=== PATIENT | female | born 1970 | race Caucasian/White ===

== ENCOUNTER 2020-12-17 10:06 | Day surgery (SDC) | payer MEDICAID ==
[2020-12-14 11:27] LABS: MEAN PLATELET VOLUME 7.3 FL (7.4-10.4); PRE OP PLATELET COUNT 291 X10'3 (140-440)
[2020-12-14 11:29] LABS: BASOPHILS % (AUTO) 0.7 % (0-1); EOSINOPHILS # (AUTO) 0.3 X10'3 (0-0.9); EOSINOPHILS % (AUTO) 4.5 % (0-6); LYMPHOCYTES # (AUTO) 1.7 X10'3 (1.1-4.8); LYMPHOCYTES % (AUTO) 28.3 % (21-51); MEAN CORPUSCULAR HGB CONC 31.6 g/dL (33.0-36.5); MEAN CORPUSCULAR VOLUME 79.1 FL (78-98); MONOCYTES # (AUTO) 0.3 X10'3 (0-0.9); MONOCYTES % (AUTO) 5.3 % (2-12); NEUTROPHILS # (AUTO) 3.7 X10'3 (1.8-7.7); NEUTROPHILS % (AUTO) 61.2 % (42-75); PRE OP HEMATOCRIT 34.8 % (35.0-45.0); RED CELL DISTRIBUTION WIDTH 19.1 % (11.5-14.5)
[2020-12-14 11:42] LABS: ALBUMIN 3.3 G/DL (3.4-5.0); ALBUMIN/GLOBULIN RATIO 0.8 (1.1-1.5); ALKALINE PHOSPHATASE 162 IU/L (46-116); BLOOD UREA NITROGEN 7 MG/DL (7-18); BUN/CREATININE RATIO 8.4 (6.6-38.0); CALCIUM 8.7 MG/DL (8.5-10.1); CHLORIDE 102 MMOL/L (99-107); CREATININE 0.83 MG/DL (0.40-0.90); PRE OP ALT 22 U/L (30-65); PRE OP ANION GAP 6 (8-16); PRE OP AST 15 U/L (10-37); PRE OP BILIRUB, TOTAL 0.2 MG/DL (0.0-1.0); PRE OP GLUCOSE 160 MG/DL (70-104); PRE OP SODIUM 138 MMOL/L (135-145); TOTAL CARBON DIOXIDE 29.6 MMOL/L (24-32); TOTAL PROTEIN 7.7 G/DL (6.4-8.2); eGFR 72 ML/MIN
[2020-12-14 13:17] LABS: LARGE PLATELETS FEW; PLATELET ESTIMATE NORMAL
[2020-12-14 13:18] LABS: ANISOCYTOSIS 2+; HYPOCHROMASIA 1+; MICROCYTOSIS 1+; STOMATOCYTES FEW
[~2020-12-17] VITALS: Ht 160 cm; Wt 85.3 kg
[2020-12-17] VITALS (9 sets, daily range): BP systolic 152–202; BP diastolic 79–100
[~2020-12-17 10:06] MED LIST: BUPR2TAB11 SL; CEPH-585 PO; GABA600T PO; LANTUS SQ; LOP25T PO; METF-900 PO; QUET-1 PO; QUET50TA PO; ceFOXitin 2GM-NS 100mL ADDvant 100 ML IV ONE; famotidine 20mg tablet PO ONE; ringers solution, lacted 1,000 ML IV SCH
[2020-12-17] MEDS ORDERED: sevoflurane 250ml liquid IH ONE (13:54)
[2020-12-17] MEDS ORDERED: fentaNYL/PF 50MCG/1 ML 2ML syringe ONE (14:03)
[2020-12-17] MEDS ORDERED: midazolam 1 mg/ML 2ml injection ONE (14:03)
[2020-12-17] MEDS ORDERED: propofol inj 20 ML IV ONE ×2 (14:28)
[2020-12-17] MEDS ORDERED: LIDOcaine 2% (20mg/ml) 5ml vial ONE (14:28)
[2020-12-17] MEDS ORDERED: ondansetron/PF 4mg/2ml inj ONE (14:28)
[2020-12-17] MEDS ORDERED: dexamethasone sod phosphate 4mg/ml inj. ONE (14:28)
[2020-12-17] MEDS ORDERED: labetalol 20mg/4ml (5mg/ml) syringe IV PRN (14:35)
[2020-12-17] MEDS ORDERED: proCHLORperazine 10 MG/2 ml inj IV PRN (14:35)
[2020-12-17] MEDS ORDERED: morphine 4 MG/ML inj SYRINge IV PRN (14:35)
[2020-12-17] MEDS ORDERED: ringers solution, lacted 1,000 ML IV SCH (14:35)
[2020-12-17] MEDS ORDERED: acetaminophen 1,000mg/100ml IV 100 ML IV PRN (14:35)
[2020-12-17] MEDS ORDERED: hydrALAZINE 20mg/ml inj. IV PRN (14:35)
[2020-12-17] MEDS ORDERED: morphine 2 MG/ML inj. syringe IV PRN (14:35)
[2020-12-17] MEDS ORDERED: meperidine/PF 25mg/ml syringe IV PRN ×3 (14:35)
[2020-12-17] MEDS ORDERED: ondansetron/PF 4mg/2ml inj IV PRN (14:35)
[2020-12-17] MEDS ORDERED: labetalol 20mg/4ml (5mg/ml) syringe IV ONE (14:53)
[2020-12-17] MEDS ORDERED: LIDOcaine 1% W/epiNEPHrine 1:100,000 20ml vial ONE (15:06)
[2020-12-17] MEDS ORDERED: clindamycin phosphate 40gm vag cream ONE (15:08)
[2020-12-17] MEDS ORDERED: ceFAZolin 1000mg inj ONE (15:08)
[2020-12-17] MEDS ORDERED: oxyCODONE/APAP 5-325mg tablet PO ONE ×2 (15:30)
--- NOTE | 2020-12-17 15:35 | NUR ---
Received from OR via [facility] , accompanied by Anesthesiologist JOSE and report given by Anesthesiolgist. PATIENT VERBALLY AGRESSIVE WITHIN MINUTES OF GETTING TO RR. DEMANDING TO GO FOR A WALK AND TO USE THE BATHROOM . BURNS CATHETER JUST TAKEN OUT IN OR AND THAT BECAUSE OF ANESTHESIA JUST ENDING I DID NOT DEEM IT SAFE TO AMBULATE AT THIS TIME. PATIENT GIVEN OPTION TO USE A BSC AND PATIENT REFUSED ADAMANTLY. 20G PIV IN LEFT UE RUNNING LR AT 100. DENIES PAIN AT THIS TIME. 10L MASKO N WITH 100% SATURATIONS AND BP OF 202/100 WILL CONTINUE TO ASSESS AND TREAT BP AND OFFER BSC PATIENT BECOMES MORE AWARE OF SITUATION. MD CAMARGO AWARE OF THIS . Addendum: 12/17/20 at 1551 by Rafael Barbosa RN RN Amended: Links added.
--- NOTE | 2020-12-17 16:55 | NUR ---
CONFERRED WITH MD JOSE COONEY BP AND USE OF OWN PAIN MEDS AT HOME THAT WILL BRING BP DOWN. MD CONCURS WITH THIS WELL TAKING HER BP MEDS AND HYPERGLYCEMIA MEDICATIONS. AMBULATING, VOIDING, DRINKING WITHOUT TROUBLE. ALL DC INSTRUCTIONS COVERED WITH PATIENT AND ALL QUESTIONS ANSWERED TO SATISFACTION. OUT VIA WHEELCHAIR TO PERSONAL VEHICLE WHERE DAUGHTER PRINCE DROVE PATIENT HOME. PATIENT AGREES TO TAKE HER BP AND DIABETIC MEDICATIONS AT HOME. Addendum: 12/17/20 at 1712 by Rafael Barbosa RN, RN Amended: Links added.
== END 2020-12-17 16:55 | disposition home or self-care (01) ==
LOC: PAS 10:06
PROVIDERS: ATTEND Obstetrics & Gynecology
DX: N39.3 Stress incontinence (female) (male) (principal); N85.8 Other specified noninflammatory disorders of uterus; N92.0 Excessive and frequent menstruation with regular cycle; Z20.822 Contact with and (suspected) exposure to COVID-19; K21.9 Gastro-esophageal reflux disease without esophagitis; F41.9 Anxiety disorder, unspecified; E11.9 Type 2 diabetes mellitus without complications; E78.5 Hyperlipidemia, unspecified; I10 Essential (primary) hypertension; F31.9 Bipolar disorder, unspecified; D64.9 Anemia, unspecified; M19.90 Unspecified osteoarthritis, unspecified site; I25.2 Old myocardial infarction; Z87.440 Personal history of urinary (tract) infections; Z79.899 Other long term (current) drug therapy; Z88.2 Allergy status to sulfonamides; Z79.4 Long term (current) use of insulin; F17.210 Nicotine dependence, cigarettes, uncomplicated; Z90.49 Acquired absence of other specified parts of digestive tract; Z98.51 Tubal ligation status; Z98.890 Other specified postprocedural states; Z81.8 Family history of other mental and behavioral disorders; Z82.49 Family history of ischemic heart disease and other diseases of the circulatory system
CPT/HCPCS: 36415; 57288; 58563; 80053; 82948; 85025; 86885; 86900; 86901; 87635; 93005; A4649; C1758; C1771; J0131; J0360; J0690; J0694; J1100; J2001; J2175; J2250; J2405; J2704; J3010; J7030; J7120; 85008; A4355; A4618; A7000; J3490

== ENCOUNTER 2023-02-08 11:42 | Inpatient (IN) | payer MEDICAID ==
[~2023-02-08] VITALS: Ht 160 cm; Wt 70.0 kg
[~2023-02-08 11:42] MED LIST changes: -ceFOXitin 2GM-NS 100mL ADDvant 100 ML IV ONE; -famotidine 20mg tablet PO ONE; -ringers solution, lacted 1,000 ML IV SCH
[2023-02-08] MEDS ORDERED: normal saline 1000ML IV soln IV ONE (12:20)
[2023-02-08] MEDS ORDERED: levoFLOXACIN-Levaquin 750MG/D5 150 ML IV ONE (12:20)
[2023-02-08 12:42] LABS: CLARITY,URINE CLOUDY (Clear); COLOR,URINE YELLOW (Yellow); GLUCOSE, URINE NEGATIVE (Neg); KETONES,URINE TRACE mg/dl (Neg); LEUKOCYTE ESTERASE ,URINE LARGE (Neg); NITRITES, URINE POSITIVE (Neg); OCCULT BLOOD,URINE LARGE (Neg); PH,URINE 5.5 (4.8-8.0); PROTEIN,URINE >=300 mg/dl (Neg); UROBILINOGEN,URINE 0.2 E.U/dL (0.2-1.0)
[2023-02-08 12:43] LABS: BASOPHILS % (AUTO) 0.1 % (0-1); EOSINOPHILS # (AUTO) 0.1 X10'3 (0-0.9); EOSINOPHILS % (AUTO) 0.5 % (0-6); HEMATOCRIT 30.6 % (35.0-45.0); HEMOGLOBIN 10.3 g/dl (12.0-16.0); LYMPHOCYTES % (AUTO) 4.9 % (21-51); MEAN CORPUSCULAR HEMOGLOBIN 34.4 PG (27.0-31.0); MEAN CORPUSCULAR HGB CONC 33.5 g/dL (33.0-36.5); MEAN CORPUSCULAR VOLUME 102.6 FL (78-98); MEAN PLATELET VOLUME 7.5 FL (7.4-10.4); MONOCYTES # (AUTO) 1.2 X10'3 (0-0.9); MONOCYTES % (AUTO) 5.8 % (2-12); NEUTROPHILS # (AUTO) 18.2 X10'3 (1.8-7.7); NEUTROPHILS % (AUTO) 88.7 % (42-75); PLATELET COUNT 265 X10'3 (140-440); RED BLOOD COUNT 2.98 X10'6 (4.20-5.60); RED CELL DISTRIBUTION WIDTH 14.8 % (11.5-14.5); WHITE BLOOD COUNT 20.5 X10'3 (4.5-11.0)
[2023-02-08 12:45] LABS: UA COLLECTION TYPE STRAIGHT CATH
[2023-02-08 12:49] LABS: WBC,URINE TNTC /HPF (0-4)
[2023-02-08 12:50] LABS: BACTERIA,URINE 4+ /HPF (Neg); MUCUS STRANDS NONE SEEN /LPF (Neg); SQUAMOUS EPITHELIAL CELL,UR FEW /LPF (FEW)
[2023-02-08 12:56] LABS: ALANINE AMINOTRANSFERASE 23 U/L (12-78); ALBUMIN 2.3 G/DL (3.4-5.0); ALBUMIN/GLOBULIN RATIO 0.5 (1.1-1.5); ALKALINE PHOSPHATASE 219 IU/L (46-116); ANION GAP 15 (8-16); ASPARTATE AMINO TRANSFERASE 32 U/L (10-37); BILIRUBIN,TOTAL 0.6 MG/DL (0.1-1.0); BLOOD UREA NITROGEN 54 MG/DL (7-18); BUN/CREATININE RATIO 17.3 (10.0-20.0); CALCIUM 8.8 MG/DL (8.5-10.1); CHLORIDE 102 MMOL/L (99-107); CREATININE 3.13 MG/DL (0.40-0.90); GLUCOSE 118 MG/DL (70-104); POTASSIUM 3.3 MMOL/L (3.5-5.1); SODIUM 136 MMOL/L (135-145); TOTAL CARBON DIOXIDE 18.8 MMOL/L (24-32); TOTAL PROTEIN 6.9 G/DL (6.4-8.2); eGFR 15 ML/MIN
[2023-02-08] MEDS ORDERED: ondansetron/PF 4mg/2ml inj IV ONE (13:00)
--- NOTE | 2023-02-08 13:09 | NUR ---
To CT at this time via [facility].
[2023-02-08] MEDS ORDERED: normal saline 1000ML IV soln IVB ONE (13:50)
[2023-02-08] MEDS ORDERED: dextrose 50%-water 50ml dispensing syringe IV PRN ×2 (14:30)
[2023-02-08] MEDS ORDERED: glucagon, human recombinant 1mg kit SUBCUT PRN (14:30)
[2023-02-08] MEDS ORDERED: potassium Cl 20 mEq SR tablet PO PRN (14:30)
[2023-02-08] MEDS ORDERED: MESSAGE TO PHARMACY PO ONE (14:30)
[2023-02-08] MEDS ORDERED: magnesium Cl slow-release 64mg tablet PO PRN (14:30)
[2023-02-08] MEDS: normal saline 1000ml 1,000 ML IV SCH (14:30)
[2023-02-08] MEDS ORDERED: ondansetron/PF 4mg/2ml inj IV PRN (14:30)
[2023-02-08] MEDS ORDERED: acetaminophen 325mg tablet PO PRN (14:30)
[2023-02-08] MEDS ORDERED: DEXTROSE 15 GM of carb/4 tabs (each vial/BOTTLE has 4 tablets) PO PRN ×2 (14:30)
[2023-02-08] MEDS ORDERED: magnesium 4gm in 100ml NS 100 ML IV PRN (14:30)
[2023-02-08] MEDS ORDERED: insulin Lispro (HumaLOG) vial - multi-dose SQ SCH (14:30)
[2023-02-08] MEDS ORDERED: potassium Cl 40MEQ/1/2NS 520ml 520 ML IV PRN (14:30)
[2023-02-08] MEDS ORDERED: HALO50CR2 TOP (15:09)
[2023-02-08] MEDS ORDERED: LISI10TA27 PO (15:10)
[2023-02-08] MEDS ORDERED: INSU100V9 SQ (15:11)
[2023-02-08] MEDS ORDERED: ATOR20TA66 PO (15:12)
[2023-02-08] MEDS ORDERED: FLUT16SP26 (15:12)
[2023-02-08] MEDS ORDERED: CHOL10006 PO (15:15)
[2023-02-08] MEDS ORDERED: DIPH25TA62 PO (15:16)
[2023-02-08 16:06] LABS: HEMOGLOBIN A1C 6.1 % (4.5-6.2)
--- NOTE | 2023-02-08 18:58 | NUR ---
Received report from Manjit and had the opportunity to ask questions and assume patient care.
[2023-02-08] MEDS: quetiapine 100mg tablet PO SCH (20:12)
[2023-02-08] MEDS: heparin, porcine 5000 units/ml vial SQ SCH (20:12)
[2023-02-08] MEDS: atorvastatin 20mg tablet PO SCH (20:13)
[2023-02-08] MEDS: metoprolol tartrate 25mg tablet PO SCH (20:13)
[2023-02-08] MEDS: potassium Cl 20 mEq SR tablet PO PRN (20:17)
[2023-02-08 20:32] VITALS: BP 121/61
--- NOTE | 2023-02-08 21:40 | NUR ---
Student documentation: I have reviewed interventions, admission assessments performed and documented by Marcia Pinto [facility] and interventions and assessment performed and documented by Roopa Calzada [facility].
[2023-02-08] MEDS: insulin glargine (Lantus) pen - multi-dose SQ SCH (22:11)
[2023-02-08 22:33] VITALS: BP 126/74
[2023-02-09] VITALS (8 sets, daily range): BP systolic 80–126; BP diastolic 40–74
[2023-02-09] MEDS: normal saline 1000ml 1,000 ML IV SCH ×3 (01:04→18:00)
[2023-02-09] MEDS: potassium Cl 20 mEq SR tablet PO PRN ×2 (01:29→05:11)
[2023-02-09] MEDS: acetaminophen 325mg tablet PO PRN (05:12)
[2023-02-09 06:05] LABS: BASOPHILS % (AUTO) 0 % (0-1); EOSINOPHILS % (AUTO) 0.2 % (0-6); HEMATOCRIT 29.1 % (35.0-45.0); HEMOGLOBIN 9.8 g/dl (12.0-16.0); LYMPHOCYTES # (AUTO) 0.5 X10'3 (1.1-4.8); LYMPHOCYTES % (AUTO) 3.7 % (21-51); MEAN CORPUSCULAR HEMOGLOBIN 34.5 PG (27.0-31.0); MEAN CORPUSCULAR HGB CONC 33.7 g/dL (33.0-36.5); MEAN CORPUSCULAR VOLUME 102.5 FL (78-98); MEAN PLATELET VOLUME 7.7 FL (7.4-10.4); MONOCYTES # (AUTO) 0.7 X10'3 (0-0.9); NEUTROPHILS # (AUTO) 13.2 X10'3 (1.8-7.7); NEUTROPHILS % (AUTO) 91.1 % (42-75); PLATELET COUNT 275 X10'3 (140-440); RED BLOOD COUNT 2.84 X10'6 (4.20-5.60); RED CELL DISTRIBUTION WIDTH 14.8 % (11.5-14.5); WHITE BLOOD COUNT 14.5 X10'3 (4.5-11.0)
[2023-02-09 06:24] LABS: ALANINE AMINOTRANSFERASE 18 U/L (12-78); ALBUMIN 1.8 G/DL (3.4-5.0); ALBUMIN/GLOBULIN RATIO 0.5 (1.1-1.5); ALKALINE PHOSPHATASE 273 IU/L (46-116); ANION GAP 13 (8-16); ASPARTATE AMINO TRANSFERASE 30 U/L (10-37); BILIRUBIN,TOTAL 0.5 MG/DL (0.1-1.0); BLOOD UREA NITROGEN 35 MG/DL (7-18); BUN/CREATININE RATIO 20.7 (10.0-20.0); CALCIUM 7.4 MG/DL (8.5-10.1); CHLORIDE 114 MMOL/L (99-107); CREATININE 1.69 MG/DL (0.40-0.90); GLUCOSE 98 MG/DL (70-104); POTASSIUM 3.4 MMOL/L (3.5-5.1); SODIUM 144 MMOL/L (135-145); TOTAL CARBON DIOXIDE 16.6 MMOL/L (24-32); TOTAL PROTEIN 5.7 G/DL (6.4-8.2); eGFR 32 ML/MIN
--- NOTE | 2023-02-09 06:42 | NUR ---
Problems reprioritized. Patient report given, questions answered & plan of care reviewed with DURAN Perez.
--- NOTE | 2023-02-09 06:55 | NUR ---
Patient in room ORTHO 4022. I have received report from Sherin and had the opportunity to ask questions and assume patient care.
[2023-02-09] MEDS: metoprolol tartrate 25mg tablet PO SCH ×2 (07:43→21:00)
[2023-02-09] MEDS: CefTRIAXone 2gm/D5W 50ml BAG 50 ML IV SCH (07:44)
[2023-02-09] MEDS: heparin, porcine 5000 units/ml vial SQ SCH ×2 (07:45→20:59)
[2023-02-09] MEDS: quetiapine 100mg tablet PO SCH ×2 (07:46→21:00)
--- NOTE | 2023-02-09 11:35 | NUR ---
PAGER ID: [phone] MESSAGE: Nichelle Wilson in [id number] - SBP has been below 90 since 0500. Current BP is 80/40. Pt is asymptomatic and has not received any medications. Receiving NS@125 -Ana [phone]
--- NOTE | 2023-02-09 11:45 | NUR ---
SW Dr. Reddy on phone and said she would "be up shortly to see pt."
--- NOTE | 2023-02-09 15:27 | NUR ---
Student documentation: I have reviewed and agree with all interventions, assessments performed and documented by Michelle KAPLAN.
--- NOTE | 2023-02-09 18:22 | NUR ---
Patient in room ORTHO 4022. I have received report from DURAN Perez and had the opportunity to ask questions and assume patient care.
[2023-02-09] MEDS: atorvastatin 20mg tablet PO SCH (20:59)
[2023-02-09] MEDS: insulin glargine (Lantus) pen - multi-dose SQ SCH (21:00)
[2023-02-10] MEDS: normal saline 1000ml 1,000 ML IV SCH ×4 (02:25→18:55)
[2023-02-10 06:00] VITALS: BP 118/63
--- NOTE | 2023-02-10 06:35 | NUR ---
Patient in room ORTHO 4022. I have received report from Raisa and had the opportunity to ask questions and assume patient care.
--- NOTE | 2023-02-10 06:37 | NUR ---
Problems reprioritized. Patient report given, questions answered & plan of care reviewed with DURAN Perez.
[2023-02-10 07:41] LABS: BASOPHILS % (AUTO) 0.1 % (0-1); EOSINOPHILS # (AUTO) 0.1 X10'3 (0-0.9); EOSINOPHILS % (AUTO) 0.8 % (0-6); HEMATOCRIT 28.5 % (35.0-45.0); HEMOGLOBIN 9.6 g/dl (12.0-16.0); LYMPHOCYTES # (AUTO) 1.3 X10'3 (1.1-4.8); LYMPHOCYTES % (AUTO) 11.4 % (21-51); MEAN CORPUSCULAR HEMOGLOBIN 34.9 PG (27.0-31.0); MEAN CORPUSCULAR HGB CONC 33.8 g/dL (33.0-36.5); MEAN CORPUSCULAR VOLUME 103.1 FL (78-98); MONOCYTES # (AUTO) 0.6 X10'3 (0-0.9); MONOCYTES % (AUTO) 5.4 % (2-12); NEUTROPHILS # (AUTO) 9.7 X10'3 (1.8-7.7); NEUTROPHILS % (AUTO) 82.3 % (42-75); PLATELET COUNT 312 X10'3 (140-440); RED BLOOD COUNT 2.76 X10'6 (4.20-5.60); RED CELL DISTRIBUTION WIDTH 15.3 % (11.5-14.5); WHITE BLOOD COUNT 11.8 X10'3 (4.5-11.0)
[2023-02-10] MEDS: quetiapine 100mg tablet PO SCH ×2 (07:47→21:00)
[2023-02-10] MEDS: CefTRIAXone 2gm/D5W 50ml BAG 50 ML IV SCH (07:47)
[2023-02-10] MEDS: metoprolol tartrate 25mg tablet PO SCH ×2 (07:47→21:03)
[2023-02-10] MEDS: heparin, porcine 5000 units/ml vial SQ SCH ×2 (07:49→21:01)
[2023-02-10 08:04] LABS: ALANINE AMINOTRANSFERASE 17 U/L (12-78); ALBUMIN 1.8 G/DL (3.4-5.0); ALBUMIN/GLOBULIN RATIO 0.4 (1.1-1.5); ALKALINE PHOSPHATASE 259 IU/L (46-116); ANION GAP 13 (8-16); ASPARTATE AMINO TRANSFERASE 20 U/L (10-37); BILIRUBIN,TOTAL 0.4 MG/DL (0.1-1.0); BLOOD UREA NITROGEN 23 MG/DL (7-18); BUN/CREATININE RATIO 20.2 (10.0-20.0); CALCIUM 7.9 MG/DL (8.5-10.1); CHLORIDE 114 MMOL/L (99-107); CREATININE 1.14 MG/DL (0.40-0.90); GLUCOSE 92 MG/DL (70-104); POTASSIUM 3.3 MMOL/L (3.5-5.1); SODIUM 145 MMOL/L (135-145); TOTAL CARBON DIOXIDE 18.2 MMOL/L (24-32); TOTAL PROTEIN 6.1 G/DL (6.4-8.2); eGFR 50 ML/MIN
[2023-02-10] MEDS: potassium Cl 20 mEq SR tablet PO PRN ×3 (09:21→17:47)
[2023-02-10 10:15] VITALS: BP 112/60
--- NOTE | 2023-02-10 14:32 | NUR ---
Patient asked to go outside to smoke a cigarette and was notified that we do not allow our patients to go outside to smoke or to leave our floor. I offered to contact the doctor for a nicotine patch and she declined. Patient was very displeased and saluted me with her middle finger.
[2023-02-10 18:00] VITALS: BP 162/87
--- NOTE | 2023-02-10 18:22 | NUR ---
Problems reprioritized. Patient report given, questions answered & plan of care reviewed with Shalonda.
--- NOTE | 2023-02-10 18:29 | NUR ---
Patient in room ORTHO 4022. I have received report from Ana Ceron RN and had the opportunity to ask questions and assume patient care.
[2023-02-10] MEDS: insulin glargine (Lantus) pen - multi-dose SQ SCH (21:00)
[2023-02-10] MEDS: atorvastatin 20mg tablet PO SCH (21:00)
[2023-02-10 22:00] VITALS: BP 142/76
[2023-02-11 02:00] VITALS: BP 164/78
[2023-02-11] MEDS: normal saline 1000ml 1,000 ML IV SCH (02:41)
--- NOTE | 2023-02-11 02:45 | NUR ---
Pt has a temp of 100.4. IS is at bedside. Pt was educated in its use as well as coughing and deep breathing every hour
--- NOTE | 2023-02-11 05:51 | NUR ---
Problems reprioritized. Patient report given, questions answered & plan of care reviewed with Miguel GARZON.
--- NOTE | 2023-02-11 05:52 | NUR ---
Pts temp is now 99.6 oral. RN will continue to encourage po intake as well as IS and coughing and deep breathing
[2023-02-11 06:00] VITALS: BP 162/74
[2023-02-11 06:25] LABS: BASOPHILS % (AUTO) 0.3 % (0-1); EOSINOPHILS # (AUTO) 0.1 X10'3 (0-0.9); EOSINOPHILS % (AUTO) 0.9 % (0-6); HEMATOCRIT 29.5 % (35.0-45.0); HEMOGLOBIN 9.9 g/dl (12.0-16.0); LYMPHOCYTES # (AUTO) 1.2 X10'3 (1.1-4.8); LYMPHOCYTES % (AUTO) 11.9 % (21-51); MEAN CORPUSCULAR HEMOGLOBIN 34.2 PG (27.0-31.0); MEAN CORPUSCULAR HGB CONC 33.6 g/dL (33.0-36.5); MEAN CORPUSCULAR VOLUME 101.7 FL (78-98); MONOCYTES # (AUTO) 0.8 X10'3 (0-0.9); MONOCYTES % (AUTO) 7.5 % (2-12); NEUTROPHILS # (AUTO) 8.4 X10'3 (1.8-7.7); NEUTROPHILS % (AUTO) 79.4 % (42-75); PLATELET COUNT 360 X10'3 (140-440); RED CELL DISTRIBUTION WIDTH 15.8 % (11.5-14.5); WHITE BLOOD COUNT 10.5 X10'3 (4.5-11.0)
[2023-02-11 06:31] LABS: ALANINE AMINOTRANSFERASE 17 U/L (12-78); ALBUMIN 1.9 G/DL (3.4-5.0); ALBUMIN/GLOBULIN RATIO 0.4 (1.1-1.5); ALKALINE PHOSPHATASE 331 IU/L (46-116); ANION GAP 15 (8-16); ASPARTATE AMINO TRANSFERASE 18 U/L (10-37); BILIRUBIN,TOTAL 0.6 MG/DL (0.1-1.0); BLOOD UREA NITROGEN 16 MG/DL (7-18); BUN/CREATININE RATIO 16.8 (10.0-20.0); CALCIUM 8.8 MG/DL (8.5-10.1); CHLORIDE 113 MMOL/L (99-107); CREATININE 0.95 MG/DL (0.40-0.90); GLUCOSE 80 MG/DL (70-104); SODIUM 145 MMOL/L (135-145); TOTAL CARBON DIOXIDE 17.3 MMOL/L (24-32); TOTAL PROTEIN 6.4 G/DL (6.4-8.2); eGFR 61 ML/MIN
[2023-02-11 07:00] LABS: ANISOCYTOSIS 1+; PLATELET ESTIMATE NORMAL; TOTAL CELLS COUNTED 100
[2023-02-11] MEDS: acetaminophen 325mg tablet PO PRN (07:21)
[2023-02-11] MEDS ORDERED: GABA600T PO (08:24)
[2023-02-11] MEDS ORDERED: CIPR-259 PO (08:26)
[2023-02-11] MEDS: CefTRIAXone 2gm/D5W 50ml BAG 50 ML IV SCH (09:44)
[2023-02-11] MEDS: quetiapine 100mg tablet PO SCH (09:45)
[2023-02-11] MEDS: heparin, porcine 5000 units/ml vial SQ SCH (09:46)
[2023-02-11 09:47] VITALS: BP_SYST 179
[2023-02-11] MEDS: metoprolol tartrate 25mg tablet PO SCH (09:47)
== END 2023-02-11 14:30 | disposition home or self-care (01) | DRG 720 ==
LOC: ER 11:43 → ED HOLD 14:31 → ORTHO 4S 19:21
PROVIDERS: ADMIT Internal Medicine; ATTEND Internal Medicine
DX: A41.9 Sepsis, unspecified organism (principal); N17.0 Acute kidney failure with tubular necrosis; R65.21 Severe sepsis with septic shock; G92.9 Unspecified toxic encephalopathy; E11.9 Type 2 diabetes mellitus without complications; F11.20 Opioid dependence, uncomplicated; N10 Acute pyelonephritis; E87.6 Hypokalemia; F17.210 Nicotine dependence, cigarettes, uncomplicated; F31.9 Bipolar disorder, unspecified; G89.4 Chronic pain syndrome; I10 Essential (primary) hypertension; Z88.2 Allergy status to sulfonamides; Z90.49 Acquired absence of other specified parts of digestive tract; Z56.0 Unemployment, unspecified; Z79.899 Other long term (current) drug therapy; Z71.6 Tobacco abuse counseling
CPT/HCPCS: 36415; 70450; 71045; 74176; 80053; 81001; 82948; 83036; 83605; 84132; 84145; 85007; 85025; 87040; 87077; 87081; 87088; 87186; 96361; 96365; 96375; 97116; 97161; 97530; 99285; A4353; G0378; J0696; J1644; J1815; J1956; J2405; J7030

== ENCOUNTER 2025-08-25 15:39 | Inpatient (IN) | payer MEDICAID ==
[~2025-08-25] VITALS: Ht 162.6 cm; Wt 68.2 kg
[~2025-08-25 15:39] MED LIST changes: +ATOR20TA66 PO; -CEPH-585 PO; +CLON0.1T2 PO; +DILT-35 PO; +FURO20TA4 PO; +GABA-1405 PO; -GABA600T PO; -LANTUS SQ; +LISI20TA28 PO; +METF-436 PO; -METF-900 PO; +VALA500T41 PO
--- NOTE | 2025-08-25 18:55 | Physician Documentation ---
History of Present Illness ~ Chief Complaint: Mechanical Fall Stated Complaint: WEAKNESS Time Seen by MD: 18:39 Primary Medical Doctor: [facility] multiple falls x 6 months, seen here last week, has no complaints of pain or injuries Patient complains of all over body numbness states she has a diabetic but only takes gabapentin because her blood sugars normal . Patient is a poor historian Day of Fall: Aug 25, 2025 Tetanus within 5 Years?: No Medication Reconciliation Allergies: Coded Allergies: Sulfa (Sulfonamide Antibiotics) (Verified Allergy, Severe, HIVES + SWELLING, 08/25/25) Scheduled Atorvastatin Calcium (Atorvastatin Calcium), 1 TAB PO HS, (Reported) Buprenorphine Hcl (Buprenorphine Hcl), 1 TAB SL TID, (Reported) Diltiazem HCl (Diltiazem 24Hr ER), 1 CAP PO DAILY, (Reported) Gabapentin (Gabapentin), 1 TAB PO TID, (Reported) Metformin Hcl (Metformin Hcl), 1 TAB PO Q12H, (Reported) Quetiapine Fumarate (Seroquel), 1 TAB PO QAM, (Reported) Quetiapine Fumarate (Seroquel), 4 TAB PO HS, (Reported) Valacyclovir HCl (Valacyclovir), 1 TAB PO BID Scheduled PRN Clonidine HCl (Clonidine HCl), 1 TAB PO TID PRN for for anxiety/agitation, (Reported) Furosemide (Furosemide), 1 TAB PO DAILY PRN for Edema, (Reported) Discontinued Medications Lisinopril (Lisinopril), 1 TAB PO HS, (Reported) Discontinued Reason: patient no longer taking Metoprolol Tartrate* (Lopressor tablet*), 1 TAB PO BID, (Reported) Discontinued Reason: patient no longer taking Past Medical History Past Medical History: Seizures, Hypertension, Cholelithiasis, Diabetes, Thyroid (unspecified) Past Surgical History: other Patient History: FH: heart disease MOTHER Alcohol Use: None Drug Use: none Lives In: Home Occupation: unemployed Review of Systems All Other Systems at this time: Reviewed and Negative ROS As stated above in the HPI, otherwise all systems are reviewed and negative. Physical Exam Vital Signs: Temperature: 98.5, Source: Temporal, Heart Rate: 96, Respiratory Rate: 16, BP: 119/60, Pulse Oximetry: 99, Weight: 68.180 Oxygen Flow Rate: 0 Physical Exam General: Alert, no apparent distress. Cachectic Respiratory: Lungs clear, no respiratory distress. Chest: No accessory muscle use. Cardiovascular: Regular rate and rhythm, no murmurs. Gastrointestinal: Soft, nontender, nondistended. Bowels sounds present. Extremities: Normal range of motion, no deformity. Neurologic: odd affect Skin: Normal color, warm and dry. No edema, no ecchymosis. Progress Results/Orders Results/Orders Orders - JOE LYMAN [employer] MAINTENANCE MECHANIC K (08/26/25 03:00) K (08/27/25 03:00) K (08/28/25 03:00) K (08/29/25 03:00) K (08/30/25 03:00) K (08/31/25 03:00) K (09/01/25 03:00) MG (08/26/25 03:00) MG (08/27/25 03:00) MG (08/28/25 03:00) MG (08/29/25 03:00) MG (08/30/25 03:00) Page Hospitalist (08/25/25 ) Completed Orders - JOE LYMAN [employer] MAINTENANCE MECHANIC BMP (08/25/25 18:54) Cbc/Diff (08/25/25 18:54) Normal Saline 1000ml (0.9% Sodium Chlori (08/25/25 20:10) K And/Or Mag Replacement (K And/Or Mag R (08/25/25 20:30) Potassium Cl Sr Tablet (K-Dur Tablet) (08/25/25 20:30) Potassium Cl Sr Tablet (K-Dur Tablet) (08/25/25 20:30) Magnesium Sulf-Water 2g/50ml (Magnesium (08/25/25 20:30) Magnesium Sulf-Water 4g/100ml (Magnesium (08/25/25 20:30) Electrocardiogram (08/25/25 ) Hgb A1c (08/25/25 19:28) Medications Received in ER Medications (Trade) Dose Ordered Sig/Matthew Route PRN Reason Start Time Stop Time Status Last Admin Dose Admin (0.9% sodium chloride (NS) 1000ml IV soln) 2,000 ml ONCE ONCE IVB 08/25/25 20:10 08/25/25 20:11 DC 08/25/25 20:38 2,000 ML (K-DUR tablet) 40 meq Q4H PRN PO Potassium 3.0 or less 08/25/25 20:30 08/25/25 22:27 DC 08/25/25 21:40 40 MEQ Vital Signs 08/25/25 15:50 Temp 98.5 Pulse 96 Resp 16 B/P (MAP) 119/60 Pulse Ox 99 O2 Flow Rate 0 Laboratory Tests Test 08/25/25 19:28 White Blood Count 8.3 Red Blood Count 2.61 L Hemoglobin 11.6 L Hematocrit 33.0 L Mean Corpuscular Volume 126.8 H Mean Corpuscular Hemoglobin 44.5 H Mean Corpuscular Hemoglobin Concent 35.1 Red Cell Distribution Width 21.3 H Platelet Count 319 Mean Platelet Volume 7.6 Neutrophils (%) (Auto) 75.6 H Lymphocytes (%) (Auto) 17.4 L Monocytes (%) (Auto) 5.9 Eosinophils (%) (Auto) 0.9 Basophils (%) (Auto) 0.2 Neutrophils # (Auto) 6.3 Lymphocytes # (Auto) 1.4 Monocytes # (Auto) 0.5 Eosinophils # (Auto) 0.1 Basophils # (Auto) 0.0 CBC Comment Platelet Estimate Normal Red Blood Cell Morphology Perf Basophilic Stippling Anisocytosis 3+ Macrocytosis 3+ Spherocytes Stomatocytes 1+ Elliptocytes Few Prothrombin Time 12.2 H INR International Normalized Ratio 1.2 Activated Partial Thromboplast Time 33 H Coagulation Comments Sodium Level 144 Potassium Level 2.6 *L Chloride Level 105 Carbon Dioxide Level 18.6 L Anion Gap 20 H Blood Urea Nitrogen 25 H Creatinine 2.48 H Estimated GFR/1.73 m2 20 BUN/Creatinine Ratio 10.1 Glucose Level 119 H Hemoglobin A1c 5.1 Osmolality 308 H Lactic Acid Level 2.8 H Calcium Level 8.2 L Albumin 2.2 L Chemistry Comments Medical Decision Making Findings Patient appears ill and her laboratory values are grossly abnormal including hypokalemia of 2.6. And grossly diminished GFR which came back at 20.. She meets criteria for hospital admission and further evaluation Departure Disposition: ADMITTED INPATIENT Impression: Primary Impression: Hypokalemia Additional Impression: Anemia Referrals: NO PRIMARY CARE PROVIDER (PCP) Education Educated: Patient Educated regarding: diagnosis Critical Care Note Total Time (mins): 30 Critical Care Note The very real possibility of a deterioration of this patient's condition required the highest level of my preparedness for sudden, emergent intervention. I provided critical care services, which included medication orders, frequent reevaluations of the patient's condition and response to treatment, ordering and reviewing test results, and discussing the case with various consultants. Excludes time spent performing separately billable procedures. The critical care time associated with the care of the patient was. Signature Scribe Signature: h Attestation: Scribed for Joe Lyman Emt Paramedic by Joe Barbosa NP . 08/25/25 21:13 JOE LYMAN [employer] MAINTENANCE MECHANIC Aug 25, 2025 18:55
[2025-08-25 19:48] LABS: MEAN PLATELET VOLUME 7.6 FL (7.4-10.4); RED CELL DISTRIBUTION WIDTH 21.3 % (11.5-14.5)
[2025-08-25 19:49] LABS: CREATININE 2.48 MG/DL (0.40-0.90); TOTAL CARBON DIOXIDE 18.6 MMOL/L (24-32); eCRCL 22 ML/MIN; eGFR 20 ML/MIN
[2025-08-25] MEDS ORDERED: magnesium sulf-water 2g/50mL 50 ML IV PRN ×2 (20:30→22:30)
[2025-08-25] MEDS: K and/or MAG REPLACEMENT MC SCH (20:30)
[2025-08-25] MEDS ORDERED: potassium Cl 20 mEq SR tablet PO PRN ×2 (20:30→22:30)
[2025-08-25] MEDS ORDERED: magnesium sulf-water 4G/100mL 100 ML IV PRN ×2 (20:30→22:30)
[2025-08-25] MEDS: normal saline 1000ML IV soln IVB ONE (20:38)
--- NOTE | 2025-08-25 21:08 | ELECTROCARDIOGRAPH REPORT ---
[facility] Test Date: 2025-08-25 Test Time: 21:05:12 Pat Name: ELEANOR LESLIE Department: [facility]ER Patient ID: [facility]-[id number] Room: Gender: F Ship Carpenter: : 1970 Requested By: STANTON LYMAN Order Number: [id number] Reading MD: Measurements Intervals [place] Rate: 109 P: 50 SC: 153 QRS: -9 QRSD: 100 T: 186 QT: 425 QTc: 573 Interpretive Statements Sinus tachycardia Borderline low voltage, extremity leads Abnormal R-wave progression, early transition Abnormal T, consider ischemia, diffuse leads Prolonged QT interval Please click the below link to view image of tracing.
[2025-08-25] MEDS: potassium Cl 20 mEq SR tablet PO PRN (21:40)
[2025-08-25] MEDS ORDERED: mag hydrox/Alum hydrox/simeth 30ml oral suspension PO PRN (22:30)
[2025-08-25] MEDS ORDERED: magnesium hydroxide 30ml (MOM) UD suspension PO PRN (22:30)
[2025-08-25] MEDS ORDERED: potassium Cl 40MEQ/1/2NS 520ml 520 ML IV PRN (22:30)
[2025-08-25 22:55] LABS: APTT 33 SECONDS (22-32); INR 1.2 INR
[2025-08-25 22:56] LABS: PLATELET ESTIMATE NORMAL
[2025-08-25 22:58] LABS: ELLIPTOCYTES FEW
--- NOTE | 2025-08-25 23:06 | RADIOLOGY REPORT ---
CLINICAL HISTORY: rule out bleed TECHNIQUE: Helical scanning was performed of the head from the skull base to the vertex. Multiplanar reconstructions were performed. This exam was performed according to our departmental dose optimization program. Up-to-date CT equipment and radiation dose reduction techniques are utilized as appropriate. CTDI 61.7 DLP 1098 COMPARISON: MR MRI HEAD on DOS: 05/26/24, CT CT STROKE ALERT on DOS: 05/26/24, CT HEAD on DOS: 02/08/23 FINDINGS: There is no evidence for acute intracranial hemorrhage, acute ischemic changes, mass, mass effect, or extra-axial fluid collection. There is no hydrocephalus or midline shift. There is no effacement of the cerebral sulci and basal subarachnoid cisterns. The vines-white matter differentiation is well maintained. There is a left inferior putamen Virchow robins space versus old infarct. The imaged paranasal sinuses are clear. The sella is expanded and empty. IMPRESSION: NO ACUTE INTRACRANIAL ABNORMALITY SEEN.
[2025-08-25] MEDS: normal saline 1000ml 1,000 ML IV SCH (23:14)
[2025-08-25 23:19] LABS: CREATININE 2.06 MG/DL (0.40-0.90); PHOSPHORUS 4.2 MG/DL (2.3-4.5); PRO BRAIN NATRIURETIC PEPTIDE 854 PG/ML (0-125); TOTAL CARBON DIOXIDE 15.8 MMOL/L (24-32); eCRCL 26 ML/MIN; eGFR 25 ML/MIN
--- NOTE | 2025-08-25 23:21 | RADIOLOGY REPORT ---
CHEST RADIOGRAPH Indication: rule out aspiration Technique: Single frontal view of the chest was obtained COMPARISON: DI CHEST,SINGLE VIEW on DOS: 05/26/24, CHEST,SINGLE VIEW on DOS: 02/08/23 FINDINGS: Lines and Tubes: None Lungs: Clear Pleura: No effusion. No pneumothorax. Cardiomediastinal contours: Unremarkable Bones: Unremarkable IMPRESSION: 1. No acute disease.
--- NOTE | 2025-08-25 23:40 | HISTORY AND PHYSICAL-Residence ---
History & Physical Providers to Resident Creating Document: JOSEPH GONZALES RES ~ History of Present Illness Primary Medical Doctor: Kimmie Reason for Admit\Complaint: Frequent falls/weakness History of Present Illness This 55-year-old female with a past medical history of bipolar disorder, tobacco abuse, opioid use disorder, hypertension, hyperlipidemia, seizure disorder presented to the ER with a chief complaint of worsening weakness and increased frequency of falls in the last two months. She did not need any walker till two months back despite having multiple medical issues and never had frequent falls. For the last two months, she has been feeling weak and falls whenever she tries to stand up from a sitting position. Has been using walker for the last two months but is not really helping her. She falls at least twice a day. Denies any dizziness, blurry vision, shortness breath, palpitations or any other complaints before the fall. Mentioned that she just feels so weak and falls. Also thinks that she gets muscle spasms. Denies any nausea, vomiting, diarrhea, dysuria, abdominal pain. Denies hitting head to the floor or losing consciousness. She will need somebody to pick her up as she feels so weak. Denies any past history of stroke or [place]. Stated that she was diagnosed with seizures about 10 years back and was on medications for nine years. She had one seizure in a month despite being on medication and so discontinued about an year back. So, now she still gets one seizure a month. Unsure for how long the seizure lasts and stated that she usually stares and blanks out but does not move all her upper and lower extremities. She feels nauseous and dizzy before getting the seizure and then she falls asleep. So, she is unsure for how long the seizure lasts. Unsure if it is a diagnosed absence seizure. She is not sure which medication she used in the past. Denies seeing any neurologist in the past and only her PCP managed her antiseizure medications. Has chronic cough with no sputum. Complaints of right upper quadrant abdominal pain when coughs. Does not use any inhalers at home. Mentioned that she used albuterol many years back. Denies being diagnosed with any CHF but takes Lasix for pedal edema. Sometimes feel numbness and tingling sensation in her bilateral forearms and hands when she wakes up in the morning. She even mentioned that she feels the numbness more on the side she sleeps. Does not feel it daily. States that her ex who 2 years back had hep c Allergies: Coded Allergies: Sulfa (Sulfonamide Antibiotics) (Verified Allergy, Severe, HIVES + SWELLING, 08/25/25) Home Medications Home Medications Active Valacyclovir (Valacyclovir HCl) 500 Mg Tablet 1 Tab PO BID 5 Days Reported Seroquel (Quetiapine Fumarate) 100 Mg Tablet 4 Tab PO HS Seroquel (Quetiapine Fumarate) 50 Mg Tablet 1 Tab PO QAM Diltiazem 24Hr ER (Diltiazem HCl) 120 Mg Cap.er.24h 1 Cap PO DAILY Metformin Hcl 500 Mg Tablet 1 Tab PO Q12H Gabapentin 600 Mg Tablet 1 Tab PO TID Furosemide 20 Mg Tablet 1 Tab PO DAILY PRN Clonidine HCl 0.1 Mg Tablet 1 Tab PO TID PRN Atorvastatin Calcium 20 Mg Tablet 1 Tab PO HS Buprenorphine Hcl 2 Mg Tab.subl 1 Tab SL TID LAST PICKED UP 12/05/22 FOR 30 DAY SUPPLY Past Medical History Past Medical History Bipolar Disorder depressed moderate, Opioid use disorder and tobacco use disorder. Hx of opioid addiction, chronic hip pain, hypertension, hyperlipidemia, GERD, CKD, seizure disorder Past Surgical History Surgical History Comment Bilateral tubal ligation, cholecystectomy Family History Family History: FH: heart disease MOTHER Past Social History Social History Comment Has been smoking one pack of cigarettes for the last 30 years. Denied drinking alcohol . Mentioned that she smoked pot when she was in 20s and denies any recreational drug abuse now ROS ROS Constitutional: Weakness present. No fever, chills, dizziness, weight gain or loss Eyes: No pain, erythema, discharge, blurring of vision ENT: No sore throat, epistaxis, tinnitus Cardiovascular: No chest pain, chest pressure, chest discomfort, palpitations, syncope, lower extremity edema, paroxysmal nocturnal dyspnea Respiratory: Chronic cough present. No shortness of breath, hemoptysis Gastrointestinal: Normal appetite. No nausea, vomiting, diarrhea, constipation, hematemesis, abdominal pain, bloating, melena or fresh blood Genitourinary: No frequency, urgency, nocturia, hematuria or dysuria Musculoskeletal: Chronic bilateral hip pain present. No myalgias Integumentary: Bilateral leg swelling present. Healing scabs on bilateral legs. No change in skin, hair, nails. Neurologic: Episodic numbness and tingling sensation of bilateral forearms and hands present. No headache, neck pain Psychiatric: No delusions, depression, loss of interest in normal activity or change in sleep pattern, hallucinations, suicidal ideations Endocrine: Weakness and fatigue present. No polydipsia, polyuria, change in appetite, heat or cold intolerance, sweating, dry skin Hematological: No bleeding, petechiae Allergies: No asthma or urticaria Exam Vitals: Vital Signs Date Time Temp Pulse Resp B/P (MAP) Pulse Ox O2 Delivery O2 Flow Rate FiO2 08/25/25 23:19 98.5 105 16 101/66 (78) 100 0 General: Alert and oriented x4 HEENT: Normocephalic and atraumatic. Pupils equal round reactive to light and accommodation. Extraocular movements intact. Oral and nasal mucosa moist. Bilateral partial ptosis present. Hirsutism - Excessive hair growth on upper lip and chin Neck: Trachea is in midline. No masses or JVD Chest: Bilateral normal breath sounds. No crackles, rhonchi or wheezes Cardiovascular: Regular rate and rhythm. S1-S2 normal. No rubs or murmurs Abdomen: Soft, mildly distended and mild tenderness in the right upper quadrant. Normoactive bowel sounds present. Ramirez's sign present. About 3 cm in diameter firmm mass near the umbilical region and she mentioned that it is there since her cholecystectomy. No bilateral costovertebral angle tenderness Extremities: Bilateral 1+ pedal edema. No cyanosis or clubbing. About 5 cm superficial abrasion below the right knee due to fall about a week back. Mer healing scabs on bilateral legs close to the knee. Bilateral 1+ pedal pulse Central Nervous System: Bilateral lower extremity motor power 3/5. Bilateral upper extremity motor power 5/5. No significant sensory abnormalities. Mild abnormality in the finger-nose test. Flapping tremors present Musculoskeletal: No spinal or paraspinal tenderness Skin: Warm and dry apart from the above-mentioned findings Diagnostic Data Last Recorded Lab Results: 08/25/258 08/25/254 Diagnostic Data: Laboratory Tests Test 08/25/25 19:28 Prothrombin Time 12.2 SECONDS (9.0-12.0) H INR International Normalized Ratio 1.2 INR Activated Partial Thromboplast Time 33 SECONDS (22-32) H Coagulation Comments Advance Care Planning Advanced Care plannin - 30 Minutes Additional Plan Metabolic acidosis with a high anion gap Moderate Hypokalemia Hypomagnesemia Lactic acidosis, delta ratio 2.1 Suspected bilateral pyelonephritis Bicarb 18.6, corrected anion gap with the albumin has been 25 Normal osmolar gap Unclear etiology for metabolic acidosis high anion gap Ethanol level ordered Chest x-ray does not show any acute cardiopulmonary abnormalities Abdomen/pelvis CT showed normal surface contour of liver, elongated right lobe, moderate pancreas atrophy, exophytic right renal cyst, symmetric perinephric stranding, diminutive UTI dose with small endometrial calcification, mild atherosclerosis ventral postsurgical change with the infraumbilical incisional fat containing hernia redemonstrated, mild spondylolysis Suspected bilateral pyelonephritis due to CT findings. Pending urine analysis. No elevated white count but neutrophilia present Pending U tox. Pending blood cultures and urine culture Given one dose of Rocephin 1 g IV once Procalcitonin significantly elevated. Started zosyn 3.375gm IV Q8H Hypokalemia and hypomagnesium likely due to diuretic use Replacement as per protocol. Magnesium 1.2. Give an additional dose of magnesium 2 g IV once Received 2 L normal saline boluses in the ER. Initially started normal saline at 100 cc/hour and then changed due to 100 mEq bicarb in half NS at 100 cc/hour as bicarb came down to 15.8. But, there is no bicarb drip available and the nurse called the nursing yard supervisor cotton gin. But, it is going to take few hours for the bicarb drip to come as per the nurse. So, ordered Ringer's lactate and advised her to stop Ringer's lactate before starting bicarb drip Ordered VBG Held gabapentin and metformin due to ongoing metabolic acidosis Frequent falls Generalized weakness Head CT showed no acute intracranial abnormality. There is a left inferior putamen Virchow robins space versus old infarct. The sella is expanded and empty. EKG showed sinus rhythm, tachycardic-109/minute, Q-waves in lead III, nonspecific T-wave inversions, no significant ST elevations or depressions, QTC 573 -takes antipsychotic Orthostatic vitals ordered Ammonia levels ordered as she has flapping tremors. Elevated-56 Started lactulose 20 mg p.o. t.i.d. Abdomen/pelvis CT did not show any signs of liver cirrhosis Physical therapy Elevated liver function tests Hyperammonemia AST 289, ALT 187, ALP 479 S/p cholecystectomy Total bilirubin within normal limits Hepatitis-B core antibody, hepatitis-C core antibody, hepatitis-B surface antigen, hepatitis-C antibody, hepatitis-B surface antibody with reflex PCR, acetaminophen level ordered Abdomen/pelvis CT showed Cholecystectomy changes. Similar caliber of the intrahepatic and extrahepatic bile ducts compared to 2022. No evidence of stone. Liver usg ordered as per teleintensivist recommendation Continue IV fluids and continue to monitor levels Recommend MRCP and GI consult if levels trend up Started lactulose 20gm po tid Possible TRACEY on CKD stage 4 Urine lytes ordered Continue IV fluids Bilateral pedal edema No shortness of breath, proBNP not significantly elevated Bilateral venous ultrasound ordered Pedal edema could be from CKD stage 4 Also ordered bilateral arterial ultrasound due to 1+ pedal pulse and episodic toe pain complaint by the patient Seizure disorder Not on any medication for the last one year Last seizure about a month back. Resolves without any treatment. Says that she sleeps Likely absence seizure as per patient's description No active seizures Patient agrees to start treatment Ethosuximide not available here in the pharmacy. So, started lamotrigine 25 mg p.o. daily Also placed records space mellitus and a referral to a neurologist office Opioid use disorder Takes buprenorphine Continue home medication buprenorphine 2 mg SL TID Bipolar disorder Continue home medication Seroquel 400 mg p.o. HS, Seroquel 50 mg p.o. in a.m. Significantly prolonged QTC-573 Risk of withdrawal with sudden stoppage of Seroquel Consider slowly tapering Seroquel and starting antipsychotic with low risk of QTC prolongation like aripiprazole or olanzapine Diabetes mellitus type 2 A1c 5.1 Held home medication metformin Hyperlipidemia Lipid panel ordered Continue home medication Lipitor 20 mg p.o. daily Hypertension Takes diltiazem CD 120 mg p.o. daily. Hold diltiazem for now due to soft blood pressure Denies any history of AFib/a flutter Echocardiogram ordered Takes Lasix at home but denies being diagnosed with any CHF Chest x-ray shows borderline cardiomegaly # Corrected calcium level with the albumin - 8.9 mg/dL # numbness and tingling sensation on bilateral forearms and hands when she wakes up in the morning-likely due to abnormal positioning leading to nerve compression Diet: Regular diet. HbA1c 5.1 DVT prophylaxis: Heparin 5000 units subcutaneous q.12h Joseph Gonzales MD Internal Medicine Resident, PGY 3 Attending Addendum Pt was seen and discussed with the team agree with assessment and plan as documented Suggest GI consultation in view of elevated LFTs Would also suggest to check CPK levels as well Date of Service: Aug 26, 2025 Billing Provider: CHANO TURNER MD, MANOJNA RES Aug 25, 2025 23:40 CHANO TURNER MD Aug 26, 2025 10:02
[2025-08-26] VITALS (8 sets, daily range): BP systolic 85–101; BP diastolic 55–62; PULSE 92–106; RESP 10–16; TEMP 96.9–98.6; O2SAT 92–100
--- NOTE | 2025-08-26 00:09 | RADIOLOGY REPORT ---
Exam: CT CT ABDOMEN PELVIS History: look for cirrhosis, cbd dilation, gall stones Comparison Study: CT ABDOMEN PELVIS on DOS: 02/08/23 Technique: Multidetector spiral CT of the abdomen was performed from lung bases to pubic symphysis. Imaging was performed without IV contrast. Axial, coronal and sagittal multiplanar reformats were obtained from the axial data set by the technologist. Radiation Dose : 1. Abdomen/Pelvis: CTDIvol 14 mGy, DLP 692 mGy*cm. Findings: Evaluation of solid organs is limited due to lack of intravenous contrast use. Lower Chest: No acute findings. Liver: Normal surface contour. Elongated right lobe. Gallbladder and Biliary Tree: Cholecystectomy changes. Similar caliber of the intrahepatic and extrahepatic bile ducts compared to 2022. No evidence of stone. Pancreas: Moderate atrophy. Spleen: Unremarkable. Adrenal Glands: Unremarkable. Kidneys/Ureters: No urinary stone or obstruction. Redemonstrated exophytic right renal cyst. Symmetric perinephric stranding. Bladder: Grossly unremarkable for degree of distention. Pelvic Organs: Diminutive uterus with small endometrial calcification. Unremarkable adnexa. Bowel: Normal caliber without wall thickening. Normal appendix. Vasculature: Mild atherosclerosis. Lymphadenopathy: No obvious adenopathy. Peritoneum: No ascites, free air, or fluid collection. Abdominal Wall: Ventral postsurgical change with infraumbilical opal-incisional fat containing hernia redemonstrated. Musculoskeletal: No acute findings. Mild spondylosis. IMPRESSION: 1. No acute abdominopelvic abnormality, evidence of urinary stone or obstruction. 2. Unremarkable noncontrast appearance of the liver. 3. Similar appearance of post cholecystectomy changes 12/2022. Radiation optimization: All CT scans at this facility use at least one of these dose optimization techniques: automated exposure control mA and/or kV adjustment per patient size (includes targeted exams where dose is matched to clinical indication) or iterative reconstruction.
[2025-08-26] MEDS: ringers solution, lacted 1,000 ML IV SCH (00:40)
[2025-08-26 00:47] LABS: ETHANOL < 10 MG/DL (<10)
[2025-08-26] MEDS: sodium bicarbonate (8.4%) inj. 100 MEQ in dextrose 5%-water 1,000 ML IV SCH (01:24)
[2025-08-26] MEDS: CefTRIAXone/D5W-Rocephin 1gm 50 ML IV ONE (01:57)
[2025-08-26] MEDS: magnesium sulf-water 2g/50mL 50 ML IV ONE (02:21)
[2025-08-26 03:22] LABS: MEAN PLATELET VOLUME 7.4 FL (7.4-10.4); RED CELL DISTRIBUTION WIDTH 20.6 % (11.5-14.5)
[2025-08-26] MEDS: potassium Cl 20 mEq SR tablet PO PRN (03:31)
[2025-08-26 03:34] LABS: APTT 33 SECONDS (22-32); INR 1.2 INR
[2025-08-26 03:37] LABS: CHOL/HDL RATIO 4.4 (0.00-4.99); CREATININE 2.00 MG/DL (0.40-0.90); LDL CHOLESTEROL 22 MG/DL (50-100); PHOSPHORUS 4.3 MG/DL (2.3-4.5); TOTAL CARBON DIOXIDE 17.6 MMOL/L (24-32); eCRCL 27 ML/MIN; eGFR 26 ML/MIN
[2025-08-26] MEDS: lactulose 20gm/30ml cup PO SCH (07:45)
[2025-08-26] MEDS: heparin, porcine 5000 units/ml vial SQ SCH (07:46)
[2025-08-26] MEDS: K and/or MAG REPLACEMENT MC SCH (07:47)
[2025-08-26] MEDS ORDERED: diltiazem CD 120mg capsule (once-daily) PO SCH (08:00)
[2025-08-26] MEDS: piperacillin/tazo 3.375gm/50ml 50 ML IV SCH (09:23)
--- NOTE | 2025-08-26 09:36 | VASCULAR REPORT ---
Bilateral lower extremity venous duplex Clinical History: Swelling. Comparison: VASC VL ARTERIAL on DOS: 08/26/25, US ULTRASOUND OF ABDOMEN on DOS: 08/26/25, CT CT ABDOMEN PELVIS on DOS: 08/25/25, CT ABDOMEN PELVIS on DOS: 02/08/23 Technique: Duplex doppler evaluation of the deep venous systems of both lower extremities from the common femoral veins to the popliteal veins including color doppler and spectral/pulsed waveform analysis was performed. Findings: RIGHT SIDE: The common femoral vein demonstrates appropriate compressibility and waveform variability. There is compressibility/patency of the great saphenous vein at the proximal thigh. The femoral vein demonstrates appropriate compressibility and waveform variability. The deep femoral vein demonstrates appropriate compressibility and waveform variability. The popliteal vein demonstrates appropriate compressibility and waveform variability. There is normal compressibility at the tibioperoneal trunk. LEFT SIDE: The common femoral vein demonstrates appropriate compressibility and waveform variability. There is compressibility/patency of the great saphenous vein at the proximal thigh. The femoral vein demonstrates appropriate compressibility and waveform variability. The deep femoral vein demonstrates appropriate compressibility and waveform variability. The popliteal vein demonstrates appropriate compressibility and waveform variability. There is normal compressibility at the tibioperoneal trunk. Impression: No right or left femoropopliteal venous thrombosis.
--- NOTE | 2025-08-26 09:38 | VASCULAR REPORT ---
[facility] Vascular Department [facility] [address] [place] [address] [facility] [email or web address] VASCULAR Name : ELEANOR LESLIE Date : 08/26/2025 [facility] Birthdate : 1970 Sex : F Wood Ski Maker : Raghav Toney RVT Age : [address]Y [address] : JOSEPH GONZALES, Preliminary Report The above named patient was referred for a NON-INVASIVE LOWER EXTREMITY ARTERIAL EVALUATION. The evaluation includes grayscale imaging, color flow Doppler and spectral analysis of the lower extermity arteries. Patient IN-PATIENT InaRStions Bilateral lower extremity pain/diminished pedal pulses bilaterally Risk Factors Hypertension Diabetes Smoking VELOCITY AND DOPPLER WAVEFORM ANALYSIS RIGHT cm/se Waveform Severity LEFT cm/se Waveform Severity c c dCFA 108.0 Multiphasic dCFA 129.2 Multiphasic Prof Fem 109.7 Multiphasic Prof Fem 85.0 Multiphasic Art. Art. Fem Art 71.1 Multiphasic Fem Art 100.4 Multiphasic Prox. Prox. Fem Art 75.6 Multiphasic Fem Art 95.4 Multiphasic Mid. Mid. Fem Art 64.2 Multiphasic Fem Art 86.3 Multiphasic Dist. Dist. Pop Art(AK) 73.9 Multiphasic Pop Art(AK) 100.8 Multiphasic Pop Art(BK) 72.7 Multiphasic Pop Art(BK) 96.0 Multiphasic CROP RESEARCH SCIENTIST Dist. 28.6 Multiphasic CROP RESEARCH SCIENTIST Dist. 46.8 Multiphasic Per Art Dist. 42.0 Multiphasic Per Art Dist. 41.1 Multiphasic LUZMARIA Dist. 39.3 Multiphasic LUZMARIA Dist. 36.3 Multiphasic Impression: Minimal plaque visualized throughout bilateral lower extremities. No hemodynamically significant stenosis or occlusion noted in bilateral lower extremities. Multiphasic flow is noted throughout bilateral lower extremities. Unable to perform ankle-brachial index due to patient pain. Multiphasic flow was visualized in the pedal arteries bilaterally.
--- NOTE | 2025-08-26 09:55 | RADIOLOGY REPORT ---
INDICATION: ELEVATED LFTS TECHNIQUE: Multiple real-time sonographic images of the right upper abdomen were obtained. COMPARISON: CT CT ABDOMEN PELVIS on DOS: 08/25/25, CT ABDOMEN PELVIS on DOS: 02/08/23 FINDINGS: The liver is increased in echogenicity. The liver measures 18cm. Gallbladder is surgically absent. The common duct measures 1.2 cm and is dilated. The right kidney measures 8.2cm. No hydronephrosis. There is a right renal cyst measuring 3 cm. Poor visualization of the right kidney due to obscuration from bowel gas. There is increased echogenicity of the right kidney. The pancreas is not well visualized due to obscuration from bowel gas. IMPRESSION: Status post cholecystectomy. Extrahepatic biliary ductal dilatation measuring 1.2 cm may be related to post reservoir effect given post cholecystectomy state. However, correlate with bilirubin levels. Hepatic steatosis. Small echogenic right kidney suggestive of chronic medical renal disease. Poor visualization of the right kidney due to obscuration from bowel gas. Right renal cysts.
[2025-08-26] MEDS: POTASSIUM CHLORIDE 20 MEQ/15 ML oral solution PO PRN (13:06)
--- NOTE | 2025-08-26 15:50 | PROGRESS NOTE ---
Daily Progress Note Providers to CC ~ better today, still weak, better appetite Central Line/PICC still needed: No Roberts-Non Protocol Roberts Indications Met/Not Met: F/C Indications Not Met Antibiotic Timeout Antibiotic Ordered?: Yes MRSA Education MRSA Education Provided to pt: Yes Subjective As above Objective Vital Signs Date Time Temp Pulse Resp B/P (MAP) Pulse Ox O2 Delivery O2 Flow Rate FiO2 08/26/25 08:00 12 100 Room Air 08/26/25 06:00 90 08/26/25 05:00 97.6 94/61 (72) 08/26/25 03:38 0 Vital signs, stable ,afebrile. Pulse Oximetry reflects adequate oxygenation. General: well developed, well nourished. Awake , alert, and oriented x4, resting comfortably in the bed, in no acute distress . Skin: Warm, dry, no pallor, no rash or petechiae. HEENT: Atraumatic, normocephalic, EOMI, anicteric sclera B; pink conjunctiva; PERRLA, normal oropharynx, moist oral and nasal mucosa. Tympanic membrane , nose , throat clear. Neck: Trachea midline. Supple, full range of motion, no JVD, bruit , hepatojugular reflex , lymphadenopathy or masses, or other lesions Cardiac: Regular rhythm, regular rate no murmurs, rubs, or gallops. Normal S1 and S2, no S3 noticed. PMI is normal. Respiratory: Equal breath sounds bilaterally, no tachypnea; lungs clear to auscultation bilaterally, no wheezing ,rub or rales, or crackles. Chest wall is symmetric and without deformity. No signs of trauma. Chest wall is nontender. No signs of respiratory distress. Resonance is normal upon percussion bilaterally. Gastrointestinal: Abdomen symmetric, non-distended, soft, non-tender, normal bowel sounds x4 quadrant, normoactive, no hepatosplenomegaly , no masses , no bruit, no flank pain bilaterally. No voluntary guarding, rebound, or rigidity. No tenderness to percussion. No pulsatile masses. Equal femoral pulses. No Ramirez's sign or McBurney point tenderness. Back; no CVA tenderness bilaterally, no deformities. Neck and back are without deformity as well. No tenderness noted on palpation of the spinous processes. Spinous processes are midline. Cervical, thoracic, and lumbar paraspinal muscles are not tender and are without spasm. Musculoskeletal: Extremities, normal range of motion, non-tender, muscle strength 5/5 x 4. Negative Homans signs bilaterally on lower extremity. Distal pulses full symmetrical, no clubbing, cyanosis , edema. Neurological: Speech is clear, alert, and oriented x 4. No motor or sensory deficit, deep tendon reflexes normal, cerebellar intact. Cranial nerves II-XII intact. Psych: Alert and or appropriate, normal affect. Vascular: Good distal pulses, which are equal x4; capillary refill less than 2 seconds. Lymphatic, no lymphadenopathy. Result Diagram: 08/26/25 0307 08/26/25 030 Coagulation Studies Laboratory Tests Test 08/26/25 03:07 Prothrombin Time 12.0 SECONDS (9.0-12.0) INR International Normalized Ratio 1.2 INR Activated Partial Thromboplast Time 33 SECONDS (22-32) H Coagulation Comments Problem\Assessment\Plan Plan Metabolic acidosis with a high anion gap Moderate Hypokalemia Hypomagnesemia Lactic acidosis, delta ratio 2.1 Suspected bilateral pyelonephritis Bicarb 18.6, corrected anion gap with the albumin has been 25 Normal osmolar gap Unclear etiology for metabolic acidosis high anion gap Ethanol level ordered Chest x-ray does not show any acute cardiopulmonary abnormalities Abdomen/pelvis CT showed normal surface contour of liver, elongated right lobe, moderate pancreas atrophy, exophytic right renal cyst, symmetric perinephric stranding, diminutive UTI dose with small endometrial calcification, mild atherosclerosis ventral postsurgical change with the infraumbilical incisional fat containing hernia redemonstrated, mild spondylolysis Suspected bilateral pyelonephritis due to CT findings. Pending urine analysis. No elevated white count but neutrophilia present Pending U tox. Pending blood cultures and urine culture Given one dose of Rocephin 1 g IV once Procalcitonin significantly elevated. Started zosyn 3.375gm IV Q8H Hypokalemia and hypomagnesium likely due to diuretic use Replacement as per protocol. Magnesium 1.2. Give an additional dose of magnesium 2 g IV once Received 2 L normal saline boluses in the ER. Initially started normal saline at 100 cc/hour and then changed due to 100 mEq bicarb in half NS at 100 cc/hour as bicarb came down to 15.8. But, there is no bicarb drip available and the nurse called the nursing melting supervisor. But, it is going to take few hours for the bicarb drip to come as per the nurse. So, ordered Ringer's lactate and advised her to stop Ringer's lactate before starting bicarb drip Ordered VBG Held gabapentin and metformin due to ongoing metabolic acidosis Frequent falls Generalized weakness Head CT showed no acute intracranial abnormality. There is a left inferior putamen Virchow robins space versus old infarct. The sella is expanded and empty. EKG showed sinus rhythm, tachycardic-109/minute, Q-waves in lead III, nonspecific T-wave inversions, no significant ST elevations or depressions, QTC 573 -takes antipsychotic Orthostatic vitals ordered Ammonia levels ordered as she has flapping tremors. Elevated-56 Started lactulose 20 mg p.o. t.i.d. Abdomen/pelvis CT did not show any signs of liver cirrhosis Physical therapy Elevated liver function tests Hyperammonemia AST 289, ALT 187, ALP 479 S/p cholecystectomy Total bilirubin within normal limits Hepatitis-B core antibody, hepatitis-C core antibody, hepatitis-B surface antigen, hepatitis-C antibody, hepatitis-B surface antibody with reflex PCR, acetaminophen level ordered Abdomen/pelvis CT showed Cholecystectomy changes. Similar caliber of the intrahepatic and extrahepatic bile ducts compared to 2022. No evidence of stone. Liver usg ordered as per teleintensivist recommendation Continue IV fluids and continue to monitor levels Recommend MRCP and GI consult if levels trend up Started lactulose 20gm po tid Possible TRACEY on CKD stage 4 Urine lytes ordered Continue IV fluids Bilateral pedal edema No shortness of breath, proBNP not significantly elevated Bilateral venous ultrasound ordered Pedal edema could be from CKD stage 4 Also ordered bilateral arterial ultrasound due to 1+ pedal pulse and episodic toe pain complaint by the patient Seizure disorder Not on any medication for the last one year Last seizure about a month back. Resolves without any treatment. Says that she sleeps Likely absence seizure as per patient's description No active seizures Patient agrees to start treatment Ethosuximide not available here in the pharmacy. So, started lamotrigine 25 mg p.o. daily Also placed records space mellitus and a referral to a neurologist office Opioid use disorder Takes buprenorphine Continue home medication buprenorphine 2 mg SL TID Bipolar disorder Continue home medication Seroquel 400 mg p.o. HS, Seroquel 50 mg p.o. in a.m. Significantly prolonged QTC-573 Risk of withdrawal with sudden stoppage of Seroquel Consider slowly tapering Seroquel and starting antipsychotic with low risk of QTC prolongation like aripiprazole or olanzapine Diabetes mellitus type 2 A1c 5.1 Held home medication metformin Hyperlipidemia Lipid panel ordered Continue home medication Lipitor 20 mg p.o. daily Hypertension Takes diltiazem CD 120 mg p.o. daily. Hold diltiazem for now due to soft blood pressure Denies any history of AFib/a flutter Echocardiogram ordered Takes Lasix at home but denies being diagnosed with any CHF Chest x-ray shows borderline cardiomegaly # Corrected calcium level with the albumin - 8.9 mg/dL # numbness and tingling sensation on bilateral forearms and hands when she wakes up in the morning-likely due to abnormal positioning leading to nerve compression Diet: Regular diet. HbA1c 5.1 DVT prophylaxis: Heparin 5000 units subcutaneous q.12h Jeison Beck MD Sepsis Screening Reassessment Date: Aug 26, 2025 Date of Service: Aug 26, 2025 Billing Provider: GRADY MORRIS MD Common Visit Codes: [id number] INP/OBS CARE(HIGH) GRADY MORRIS MD Aug 26, 2025 15:50
--- NOTE | 2025-08-26 18:32 | CARDIOLOGY REPORT ---
APPROVED REPORT EXAM: Comprehensive 2D, Doppler, and color-flow Echocardiogram. 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 3.54 cm FS (%) 29.9 % SV 53.5 ml CO 5.0 L/min M-Mode Dimensions Left Atrium(MM) 3.42 (2.5-4.0cm) Aortic Root 3.03 (2.2-3.7cm) Aortic Cusp Exc 1.21 (1.5-2.0cm) Biplane 2D LA Volumes LA ESV Index 22.21 mL/m2 Aortic Valve AoV Peak Siva. 276.4 cm/s AoV VTI 53.9 cm AO Peak GR. 30.6 mmHg AO Mean GR. 17 mmHg LVOT VTI 27.35 cm LVOT Peak Siva. 149.0 cm/s ESTHELA(VTI)/BSA 1.79 cm2/m2 ESTHELA (VTI) 1.79 cm2 AV DI 0.51 % Mitral Valve MV E Velocity 93.9 cm/s MV Peak Gr. 7 mmHg MV DECEL TIME 174 ms MV A Velocity 75.3 cm/s MV PHT 38 ms E/A Ratio 1.2 MVA (PHT) 5.79 cm2 MV VMax 133.3 cm/s TDI Medial E' P. V 12.81 cm/s E/Medial E' 7.3 Pulmonary Vein S1 Velocity 69.1 cm/s D2 Velocity 51.9 cm/s PVa Velocity 31.6 cm/s PVa Duration 92 msec LEFT VENTRICLE Normal LV size and wall thickness. Overall systolic function is normal. LVEF is 55-60%. RIGHT VENTRICLE RV is normal size and function. ATRIA The left atrium size is normal. AORTIC VALVE Trileaflet AV appears moderately sclerotic and calcified with mild stenosis. ESTHELA: 1.79 cmsq; Pkv: 2.76 m/sec; Gradients: 30 / 17 mmHG. Moderate insufficiency. MITRAL VALVE Mild MV annular calcification without stenosis. Trace regurgitation. TRICUSPID VALVE TV appears structurally normal with trace regurgitation. PULMONIC VALVE Normal PV without stenosis, physiologic insufficiency. GREAT VESSELS Aortic root is normal in size. Ascending aorta is normal in size. PERICARDIUM Normal pericardium. No effusion. Other Information Study Quality: Adequate Conclusion Normal LV size and wall thickness. Overall systolic function is normal. LVEF is 55-60%. RV is normal size and function. The left atrium size is normal. Trileaflet AV appears moderately sclerotic and calcified with mild stenosis. ESTHELA: 1.79 cmsq; Pkv: 2.76 m/sec; Gradients: 30 / 17 mmHG. Moderate insufficiency. Mild MV annular calcification without stenosis. Trace regurgitation. TV appears structurally normal with trace regurgitation. Normal pericardium. No effusion.
[2025-08-26 18:35] LABS: CREATININE 1.65 MG/DL (0.40-0.90); TOTAL CARBON DIOXIDE 22.4 MMOL/L (24-32); eCRCL 33 ML/MIN; eGFR 32 ML/MIN
[2025-08-26 22:02] LABS: LEUKOCYTE ESTERASE ,URINE NEGATIVE (Neg); NITRITES, URINE NEGATIVE (Neg); OCCULT BLOOD,URINE TRACE-INTACT (Neg)
[2025-08-26 22:11] LABS: UA COLLECTION TYPE CLN CATCH MIDSTREAM
[2025-08-26 22:17] LABS: OSMOLALITY UA 382 MOSM/K (50-1400)
[2025-08-26 22:21] LABS: SQUAMOUS EPITHELIAL CELL,UR FEW /LPF (FEW); WBC CLUMPS,URINE FEW /HPF (NEGATIVE)
[2025-08-26 22:27] LABS: CREATININE,URINE RANDOM 45.0 MG/DL; URINE AMPHETAMINE SCREEN NEGATIVE (Neg); URINE BARBITUATE SCREEN NEGATIVE (Neg); URINE BENZODIAZEPINES SCREEN NEGATIVE (Neg); URINE CANNABINOID SCREEN NEGATIVE (Neg); URINE COCAINE SCREEN NEGATIVE (Neg); URINE METHADONE SCREEN NEGATIVE (Neg); URINE OPIATE SCREEN NEGATIVE (Neg); URINE PHENCYCLIDINE SCREEN NEGATIVE (Neg)
[2025-08-26 22:55] LABS: UA EOSINOPHILS NO EOS /HPF
[2025-08-27] VITALS (7 sets, daily range): BP systolic 90–125; BP diastolic 51–80; PULSE 104–130; RESP 15–18; TEMP 97.1–98.3; O2SAT 91–100
[2025-08-27 09:03] LABS: MEAN PLATELET VOLUME 7.8 FL (7.4-10.4); RED CELL DISTRIBUTION WIDTH 21.1 % (11.5-14.5)
[2025-08-27 09:13] LABS: APTT 39 SECONDS (22-32); INR 1.1 INR
[2025-08-27 09:14] LABS: HBSAG SCREEN Negative (Negative); HEP A AB, IGM Negative (Negative); HEP B CORE AB, IGM Negative (Negative); HEPATITIS C VIRUS ANTIBODY Non Reactive (Non Reactive)
[2025-08-27 09:27] LABS: CREATININE 1.42 MG/DL (0.40-0.90); PHOSPHORUS 2.4 MG/DL (2.3-4.5); TOTAL CARBON DIOXIDE 24.6 MMOL/L (24-32); eCRCL 38 ML/MIN; eGFR 38 ML/MIN
[2025-08-27 09:46] LABS: PLATELET ESTIMATE NORMAL
[2025-08-27] MEDS: ondansetron/PF 4mg/2ml inj IV PRN (16:01)
--- NOTE | 2025-08-27 20:13 | PROGRESS NOTE ---
Daily Progress Note Providers to CC ~ feels better today tolerating medication just fine Central Line/PICC still needed: No Orberts-Non Protocol Roberts Indications Met/Not Met: F/C Indications Not Met Antibiotic Timeout Antibiotic Ordered?: Yes MRSA Education MRSA Education Provided to pt: Yes Subjective As above Objective Vital Signs Date Time Temp Pulse Resp B/P (MAP) Pulse Ox O2 Delivery O2 Flow Rate FiO2 08/27/25 19:56 140 08/27/25 15:00 98.0 16 107/72 (84) 100 Room Air 08/26/25 20:00 21 08/26/25 03:38 0 Vital signs, stable ,afebrile. Tachycardic, Pulse Oximetry reflects adequate oxygenation. General: well developed, well nourished. Awake , alert, and oriented x4, resting comfortably in the bed, in no acute distress . Skin: Warm, dry, no pallor, no rash or petechiae. HEENT: Atraumatic, normocephalic, EOMI, anicteric sclera B; pink conjunctiva; PERRLA, normal oropharynx, moist oral and nasal mucosa. Tympanic membrane , nose , throat clear. Neck: Trachea midline. Supple, full range of motion, no JVD, bruit , hepatojugular reflex , lymphadenopathy or masses, or other lesions Cardiac: Regular rhythm, regular rate no murmurs, rubs, or gallops. Normal S1 and S2, no S3 noticed. PMI is normal. Respiratory: Equal breath sounds bilaterally, no tachypnea; lungs clear to auscultation bilaterally, no wheezing ,rub or rales, or crackles. Chest wall is symmetric and without deformity. No signs of trauma. Chest wall is nontender. No signs of respiratory distress. Resonance is normal upon percussion bilaterally. Gastrointestinal: Abdomen symmetric, non-distended, soft, non-tender, normal bowel sounds x4 quadrant, normoactive, no hepatosplenomegaly , no masses , no bruit, no flank pain bilaterally. No voluntary guarding, rebound, or rigidity. No tenderness to percussion. No pulsatile masses. Equal femoral pulses. No Ramirez's sign or McBurney point tenderness. Back; no CVA tenderness bilaterally, no deformities. Neck and back are without deformity as well. No tenderness noted on palpation of the spinous processes. Spinous processes are midline. Cervical, thoracic, and lumbar paraspinal muscles are not tender and are without spasm. Musculoskeletal: Extremities, normal range of motion, non-tender, muscle strength 5/5 x 4. Negative Homans signs bilaterally on lower extremity. Distal pulses full symmetrical, no clubbing, cyanosis , edema. Neurological: Speech is clear, alert, and oriented x 4. No motor or sensory deficit, deep tendon reflexes normal, cerebellar intact. Cranial nerves II-XII intact. Psych: Alert and or appropriate, normal affect. Vascular: Good distal pulses, which are equal x4; capillary refill less than 2 seconds. Lymphatic, no lymphadenopathy. Result Diagram: 08/27/2528 08/27/25827 Coagulation Studies Laboratory Tests Test 08/27/25 08:28 Prothrombin Time 11.5 SECONDS (9.0-12.0) INR International Normalized Ratio 1.1 INR Activated Partial Thromboplast Time 39 SECONDS (22-32) H Coagulation Comments Problem\Assessment\Plan Assessment/ Plan Metabolic acidosis with a high anion gap Moderate Hypokalemia Hypomagnesemia Lactic acidosis, delta ratio 2.1 Suspected bilateral pyelonephritis Bicarb 18.6, corrected anion gap with the albumin has been 25 Normal osmolar gap Unclear etiology for metabolic acidosis high anion gap Ethanol level ordered Chest x-ray does not show any acute cardiopulmonary abnormalities Abdomen/pelvis CT showed normal surface contour of liver, elongated right lobe, moderate pancreas atrophy, exophytic right renal cyst, symmetric perinephric stranding, diminutive UTI dose with small endometrial calcification, mild atherosclerosis ventral postsurgical change with the infraumbilical incisional fat containing hernia redemonstrated, mild spondylolysis Suspected bilateral pyelonephritis due to CT findings. Pending urine analysis. No elevated white count but neutrophilia present Pending U tox. Pending blood cultures and urine culture Given one dose of Rocephin 1 g IV once Procalcitonin significantly elevated. Started zosyn 3.375gm IV Q8H Hypokalemia and hypomagnesium likely due to diuretic use Replacement as per protocol. Magnesium 1.2. Give an additional dose of magnesium 2 g IV once Received 2 L normal saline boluses in the ER. Initially started normal saline at 100 cc/hour and then changed due to 100 mEq bicarb in half NS at 100 cc/hour as bicarb came down to 15.8. But, there is no bicarb drip available and the nurse called the nursing caddy/caddie supervisor. But, it is going to take few hours for the bicarb drip to come as per the nurse. So, ordered Ringer's lactate and advised her to stop Ringer's lactate before starting bicarb drip Ordered VBG Held gabapentin and metformin due to ongoing metabolic acidosis Frequent falls Generalized weakness Head CT showed no acute intracranial abnormality. There is a left inferior putamen Virchow robins space versus old infarct. The sella is expanded and empty. EKG showed sinus rhythm, tachycardic-109/minute, Q-waves in lead III, nonspecific T-wave inversions, no significant ST elevations or depressions, QTC 573 -takes antipsychotic Orthostatic vitals ordered Ammonia levels ordered as she has flapping tremors. Elevated-56 Started lactulose 20 mg p.o. t.i.d. Abdomen/pelvis CT did not show any signs of liver cirrhosis Physical therapy Elevated liver function tests Hyperammonemia AST 289, ALT 187, ALP 479 S/p cholecystectomy Total bilirubin within normal limits Hepatitis-B core antibody, hepatitis-C core antibody, hepatitis-B surface antigen, hepatitis-C antibody, hepatitis-B surface antibody with reflex PCR, acetaminophen level ordered Abdomen/pelvis CT showed Cholecystectomy changes. Similar caliber of the intrahepatic and extrahepatic bile ducts compared to 2022. No evidence of stone. Liver usg ordered as per teleintensivist recommendation Continue IV fluids and continue to monitor levels Recommend MRCP and GI consult if levels trend up Started lactulose 20gm po tid Possible TRACEY on CKD stage 4 Urine lytes ordered Continue IV fluids Bilateral pedal edema No shortness of breath, proBNP not significantly elevated Bilateral venous ultrasound ordered Pedal edema could be from CKD stage 4 Also ordered bilateral arterial ultrasound due to 1+ pedal pulse and episodic toe pain complaint by the patient Seizure disorder Not on any medication for the last one year Last seizure about a month back. Resolves without any treatment. Says that she sleeps Likely absence seizure as per patient's description No active seizures Patient agrees to start treatment Ethosuximide not available here in the pharmacy. So, started lamotrigine 25 mg p.o. daily Also placed records space mellitus and a referral to a neurologist office Opioid use disorder Takes buprenorphine Continue home medication buprenorphine 2 mg SL TID Bipolar disorder Continue home medication Seroquel 400 mg p.o. HS, Seroquel 50 mg p.o. in a.m. Significantly prolonged QTC-573 Risk of withdrawal with sudden stoppage of Seroquel Consider slowly tapering Seroquel and starting antipsychotic with low risk of QTC prolongation like aripiprazole or olanzapine Diabetes mellitus type 2 A1c 5.1 Held home medication metformin Hyperlipidemia Lipid panel ordered Continue home medication Lipitor 20 mg p.o. daily Hypertension Takes diltiazem CD 120 mg p.o. daily. Hold diltiazem for now due to soft blood pressure Denies any history of AFib/a flutter Echocardiogram ordered Takes Lasix at home but denies being diagnosed with any CHF Chest x-ray shows borderline cardiomegaly # Corrected calcium level with the albumin - 8.9 mg/dL # numbness and tingling sensation on bilateral forearms and hands when she wakes up in the morning-likely due to abnormal positioning leading to nerve compression Diet: Regular diet. HbA1c 5.1 DVT prophylaxis: Heparin 5000 units subcutaneous q.12h Jeison Beck MD Sepsis Screening Reassessment Date: Aug 27, 2025 Date of Service: Aug 27, 2025 Billing Provider: GRADY MORRIS MD Common Visit Codes: [id number] SAME DATE (HIGH) GRADY MORRIS MD Aug 27, 2025 20:13
[2025-08-28] VITALS (10 sets, daily range): BP systolic 82–107; BP diastolic 56–69; PULSE 65–122; RESP 10–18; TEMP 97.3–97.9; O2SAT 90–100
[2025-08-28 00:44] LABS: CREATININE 1.55 MG/DL (0.40-0.90); TOTAL CARBON DIOXIDE 26.1 MMOL/L (24-32); eCRCL 35 ML/MIN; eGFR 35 ML/MIN
[2025-08-28] MEDS ORDERED: METO25TA6 PO (01:01)
[2025-08-28] MEDS: ringers solution, lacted 1,000 ML IV SCH (01:43)
[2025-08-28 06:32] LABS: MEAN PLATELET VOLUME 7.6 FL (7.4-10.4); RED CELL DISTRIBUTION WIDTH 20.6 % (11.5-14.5)
[2025-08-28 06:43] LABS: APTT 39 SECONDS (22-32); INR 1.1 INR
[2025-08-28 06:55] LABS: CREATININE 1.44 MG/DL (0.40-0.90); PHOSPHORUS 2.9 MG/DL (2.3-4.5); TOTAL CARBON DIOXIDE 28.2 MMOL/L (24-32); eCRCL 38 ML/MIN; eGFR 38 ML/MIN
[2025-08-28] MEDS: magnesium Cl slow-release 64mg tablet PO PRN (08:40)
[2025-08-28] MEDS: LIDOCAINE 5% OINTMENT 35GM TP SCH (10:15)
--- NOTE | 2025-08-28 20:14 | PROGRESS NOTE ---
Daily Progress Note Providers to CC Feels better today, better appetite better sleep ~ Central Line/PICC still needed: No Roberts-Non Protocol Roberts Indications Met/Not Met: F/C Indications Not Met Antibiotic Timeout Antibiotic Ordered?: No MRSA Education MRSA Education Provided to pt: No Subjective As above Objective Vital Signs Date Time Temp Pulse Resp B/P (MAP) Pulse Ox O2 Delivery O2 Flow Rate FiO2 08/28/25 19:56 16 95 Room Air 0.0 08/28/25 19:47 95 08/28/25 18:00 97.7 82/56 (65) 08/26/25 20:00 21 Vital signs, stable ,afebrile. Pulse Oximetry reflects adequate oxygenation. General: well developed, well nourished. Awake , alert, and oriented x4, resting comfortably in the bed, in no acute distress . Skin: Warm, dry, no pallor, no rash or petechiae. HEENT: Atraumatic, normocephalic, EOMI, anicteric sclera B; pink conjunctiva; PERRLA, normal oropharynx, moist oral and nasal mucosa. Tympanic membrane , nose , throat clear. Neck: Trachea midline. Supple, full range of motion, no JVD, bruit , hepatojugular reflex , lymphadenopathy or masses, or other lesions Cardiac: Regular rhythm, regular rate no murmurs, rubs, or gallops. Normal S1 and S2, no S3 noticed. PMI is normal. Respiratory: Equal breath sounds bilaterally, no tachypnea; lungs clear to auscultation bilaterally, no wheezing ,rub or rales, or crackles. Chest wall is symmetric and without deformity. No signs of trauma. Chest wall is nontender. No signs of respiratory distress. Resonance is normal upon percussion bilaterally. Gastrointestinal: Abdomen symmetric, non-distended, soft, non-tender, normal bowel sounds x4 quadrant, normoactive, no hepatosplenomegaly , no masses , no bruit, no flank pain bilaterally. No voluntary guarding, rebound, or rigidity. No tenderness to percussion. No pulsatile masses. Equal femoral pulses. No Ramirez's sign or McBurney point tenderness. Back; no CVA tenderness bilaterally, no deformities. Neck and back are without deformity as well. No tenderness noted on palpation of the spinous processes. Spinous processes are midline. Cervical, thoracic, and lumbar paraspinal muscles are not tender and are without spasm. Musculoskeletal: Extremities, normal range of motion, non-tender, muscle strength 5/5 x 4. Negative Homans signs bilaterally on lower extremity. Distal pulses full symmetrical, no clubbing, cyanosis , edema. Neurological: Speech is clear, alert, and oriented x 4. No motor or sensory deficit, deep tendon reflexes normal, cerebellar intact. Cranial nerves II-XII intact. Psych: Alert and or appropriate, normal affect. Vascular: Good distal pulses, which are equal x4; capillary refill less than 2 seconds. Lymphatic, no lymphadenopathy. Result Diagram: 08/28/25 0608 08/28/25 0608 Coagulation Studies Laboratory Tests Test 08/28/25 06:08 Prothrombin Time 11.6 SECONDS (9.0-12.0) INR International Normalized Ratio 1.1 INR Activated Partial Thromboplast Time 39 SECONDS (22-32) H Coagulation Comments Problem\Assessment\Plan Assessment/ Plan Metabolic acidosis with a high anion gap , resolving Moderate Hypokalemia Hypomagnesemia Lactic acidosis, delta ratio 2.1 Suspected bilateral pyelonephritis Bicarb 18.6, corrected anion gap with the albumin has been 25 discontinued today Normal osmolar gap Unclear etiology for metabolic acidosis high anion gap Ethanol level ordered Chest x-ray does not show any acute cardiopulmonary abnormalities Abdomen/pelvis CT showed normal surface contour of liver, elongated right lobe, moderate pancreas atrophy, exophytic right renal cyst, symmetric perinephric stranding, diminutive UTI dose with small endometrial calcification, mild atherosclerosis ventral postsurgical change with the infraumbilical incisional fat containing hernia redemonstrated, mild spondylolysis Suspected bilateral pyelonephritis due to CT findings. Pending urine analysis. No elevated white count but neutrophilia present Pending U tox. Pending blood cultures and urine culture Given one dose of Rocephin 1 g IV once Procalcitonin significantly elevated. Started zosyn 3.375gm IV Q8H Hypokalemia and hypomagnesium likely due to diuretic use Replacement as per protocol. Magnesium 1.2. Give an additional dose of magnesium 2 g IV once Received 2 L normal saline boluses in the ER. Initially started normal saline at 100 cc/hour and then changed due to 100 mEq bicarb in half NS at 100 cc/hour as bicarb came down to 15.8. But, there is no bicarb drip available and the nurse called the nursing first line production supervisor. But, it is going to take few hours for the bicarb drip to come as per the nurse. So, ordered Ringer's lactate and advised her to stop Ringer's lactate before starting bicarb drip Ordered VBG Held gabapentin and metformin due to ongoing metabolic acidosis Frequent falls Generalized weakness Head CT showed no acute intracranial abnormality. There is a left inferior putamen Virchow robins space versus old infarct. The sella is expanded and empty. EKG showed sinus rhythm, tachycardic-109/minute, Q-waves in lead III, nonspecific T-wave inversions, no significant ST elevations or depressions, QTC 573 -takes antipsychotic Orthostatic vitals ordered Ammonia levels ordered as she has flapping tremors. Elevated-56 Started lactulose 20 mg p.o. t.i.d. Abdomen/pelvis CT did not show any signs of liver cirrhosis Physical therapy Elevated liver function tests Hyperammonemia AST 289, ALT 187, ALP 479 S/p cholecystectomy Total bilirubin within normal limits Hepatitis-B core antibody, hepatitis-C core antibody, hepatitis-B surface antigen, hepatitis-C antibody, hepatitis-B surface antibody with reflex PCR, acetaminophen level ordered Abdomen/pelvis CT showed Cholecystectomy changes. Similar caliber of the intrahepatic and extrahepatic bile ducts compared to 2022. No evidence of stone. Liver usg ordered as per teleintensivist recommendation Continue IV fluids and continue to monitor levels Recommend MRCP and GI consult if levels trend up Started lactulose 20gm po tid Possible TRACEY on CKD stage 4 Urine lytes ordered Continue IV fluids Bilateral pedal edema No shortness of breath, proBNP not significantly elevated Bilateral venous ultrasound ordered Pedal edema could be from CKD stage 4 Also ordered bilateral arterial ultrasound due to 1+ pedal pulse and episodic toe pain complaint by the patient Seizure disorder Not on any medication for the last one year Last seizure about a month back. Resolves without any treatment. Says that she sleeps Likely absence seizure as per patient's description No active seizures Patient agrees to start treatment Ethosuximide not available here in the pharmacy. So, started lamotrigine 25 mg p.o. daily Also placed records space mellitus and a referral to a neurologist office Opioid use disorder Takes buprenorphine Continue home medication buprenorphine 2 mg SL TID Bipolar disorder Continue home medication Seroquel 400 mg p.o. HS, Seroquel 50 mg p.o. in a.m. Significantly prolonged QTC-573 Risk of withdrawal with sudden stoppage of Seroquel Consider slowly tapering Seroquel and starting antipsychotic with low risk of QTC prolongation like aripiprazole or olanzapine Diabetes mellitus type 2 A1c 5.1 Held home medication metformin Hyperlipidemia Lipid panel ordered Continue home medication Lipitor 20 mg p.o. daily Hypertension Takes diltiazem CD 120 mg p.o. daily. Hold diltiazem for now due to soft blood pressure Denies any history of AFib/a flutter Echocardiogram ordered Takes Lasix at home but denies being diagnosed with any CHF Chest x-ray shows borderline cardiomegaly # Corrected calcium level with the albumin - 8.9 mg/dL # numbness and tingling sensation on bilateral forearms and hands when she wakes up in the morning-likely due to abnormal positioning leading to nerve compression Diet: Regular diet. HbA1c 5.1 DVT prophylaxis: Heparin 5000 units subcutaneous q.12h Jeison Beck MD Sepsis Screening Reassessment Date: Aug 28, 2025 Date of Service: Aug 28, 2025 Billing Provider: GRADY MORRIS MD Common Visit Codes: [id number] INP/OBS CARE(HIGH) GRADY MORRIS MD Aug 28, 2025 20:14
[2025-08-29 00:30] VITALS: BP 95/65
[2025-08-29 02:00] VITALS: BP 100/70; PULSE 115; RESP 16; TEMP 89.2; O2SAT 97
[2025-08-29 07:30] LABS: MEAN PLATELET VOLUME 7.8 FL (7.4-10.4); RED CELL DISTRIBUTION WIDTH 19.5 % (11.5-14.5)
[2025-08-29 07:45] LABS: INR 1.1 INR
[2025-08-29 07:50] LABS: PLATELET ESTIMATE NORMAL
[2025-08-29 07:56] LABS: CREATININE 1.28 MG/DL (0.40-0.90); PHOSPHORUS 2.5 MG/DL (2.3-4.5); TOTAL CARBON DIOXIDE 25.5 MMOL/L (24-32); eCRCL 42 ML/MIN; eGFR 43 ML/MIN
[2025-08-29 08:00] VITALS: RESP 16; O2SAT 95
[2025-08-29 09:03] VITALS: BP_SYST 109; PULSE 64
--- NOTE | 2025-08-29 18:51 | DISCHARGE SUMMARY ---
Discharge Summary Providers to CC No new complaint, asking to be discharged home for family emergency reasons ~ Discharge Summary Assessment Metabolic acidosis Transaminitis Hyperammonemia Diabetes mellitus type 2 poor control Acute kidney injury secondary to vasomotor nephropathy Hypokalemia lactic acidosis UTI Frequent Falls generalized weakness Bipolar Disorder depressed moderate, Admission Diagnosis: WEAKNESS/FALLS/METABOLIC ACIDOSIS Admission Diagnosis Comment: Metabolic acidosis Transaminitis Hyperammonemia Diabetes mellitus type 2 poor control Acute kidney injury secondary to vasomotor nephropathy Hypokalemia lactic acidosis UTI Frequent Falls generalized weakness Bipolar Disorder depressed moderate, Hospital Course DATE OF ADMISSION: August 25, 2025 DATE OF DISCHARGE: August 29, 2025 Discharge Diagnosis\Comment: Metabolic acidosis Transaminitis Hyperammonemia Diabetes mellitus type 2 poor control Acute kidney injury secondary to vasomotor nephropathy Hypokalemia lactic acidosis UTI Frequent Falls generalized weakness Bipolar Disorder depressed moderate, Operations\Procedures: Non Consultants: Non Complications: Non Condition on DC: Stable Discharge Summary: This 55-year-old female with a past medical history of bipolar disorder, tobacco abuse, opioid use disorder, hypertension, hyperlipidemia, seizure disorder presented to the ER with a chief complaint of worsening weakness and increased frequency of falls in the last two months. She did not need any walker till two months back despite having multiple medical issues and never had frequent falls. For the last two months, she has been feeling weak and falls whenever she tries to stand up from a sitting position. Has been using walker for the last two months but is not really helping her. She falls at least twice a day. Denies any dizziness, blurry vision, shortness breath, palpitations or any other complaints before the fall. Mentioned that she just feels so weak and falls. Also thinks that she gets muscle spasms. Denies any nausea, vomiting, diarrhea, dysuria, abdominal pain. Denies hitting head to the floor or losing consciousness. She will need somebody to pick her up as she feels so weak. Denies any past history of stroke or VA. Stated that she was diagnosed with seizures about 10 years back and was on medications for nine years. She had one seizure in a month despite being on medication and so discontinued about an year back. So, now she still gets one seizure a month. Unsure for how long the seizure lasts and stated that she usually stares and blanks out but does not move all her upper and lower extremities. She feels nauseous and dizzy before getting the seizure and then she falls asleep. So, she is unsure for how long the seizure lasts. Unsure if it is a diagnosed absence seizure. She is not sure which medication she used in the past. Denies seeing any neurologist in the past and only her PCP managed her antiseizure medications. Has chronic cough with no sputum. Complaints of right upper quadrant abdominal pain when coughs. Does not use any inhalers at home. Mentioned that she used albuterol many years back. Denies being diagnosed with any CHF but takes Lasix for pedal edema. Sometimes feel numbness and tingling sensation in her bilateral forearms and hands when she wakes up in the morning. She even mentioned that she feels the numbness more on the side she sleeps. Does not feel it daily. States that her ex who 2 years back had hep c, after admission condition improved today she is asking to be discharged home for family emergency reasons, I explained to the patient the need to continue inpatient care and further evaluation, risk of severe complications and if she is discharged explained patient understood elected to be discharged, medication reconciled follow-up PCP in the morning, return to emergency department if condition worsens, today on physical exam, Vital signs, stable ,afebrile. Pulse Oximetry reflects adequate oxygenation. General: well developed, well nourished. Awake , alert, and oriented x4, resting comfortably in the bed, in no acute distress . Skin: Warm, dry, no pallor, no rash or petechiae. HEENT: Atraumatic, normocephalic, EOMI, anicteric sclera B; pink conjunctiva; PERRLA, normal oropharynx, moist oral and nasal mucosa. Tympanic membrane , nose , throat clear. Neck: Trachea midline. Supple, full range of motion, no JVD, bruit , hepatojugular reflex , lymphadenopathy or masses, or other lesions Cardiac: Regular rhythm, regular rate no murmurs, rubs, or gallops. Normal S1 and S2, no S3 noticed. PMI is normal. Respiratory: Equal breath sounds bilaterally, no tachypnea; lungs clear to auscultation bilaterally, no wheezing ,rub or rales, or crackles. Chest wall is symmetric and without deformity. No signs of trauma. Chest wall is nontender. No signs of respiratory distress. Resonance is normal upon percussion bilaterally. Gastrointestinal: Abdomen symmetric, non-distended, soft, non-tender, normal bowel sounds x4 quadrant, normoactive, no hepatosplenomegaly , no masses , no bruit, no flank pain bilaterally. No voluntary guarding, rebound, or rigidity. No tenderness to percussion. No pulsatile masses. Equal femoral pulses. No Ramirez's sign or McBurney point tenderness. Back; no CVA tenderness bilaterally, no deformities. Neck and back are without deformity as well. No tenderness noted on palpation of the spinous processes. Spinous processes are midline. Cervical, thoracic, and lumbar paraspinal muscles are not tender and are without spasm. : Not indicated Musculoskeletal: Extremities, normal range of motion, non-tender, muscle strength 5/5 x 4. Negative Homans signs bilaterally on lower extremity. Distal pulses full symmetrical, no clubbing, cyanosis , edema. Neurological: Speech is clear, alert, and oriented x 4. No motor or sensory deficit, deep tendon reflexes normal, cerebellar intact. Cranial nerves II-XII intact. Psych: Alert and or appropriate, normal affect. Vascular: Good distal pulses, which are equal x4; capillary refill less than 2 seconds. Lymphatic, no lymphadenopathy. *Problems/Diagnosis: (1) UTI (urinary tract infection) (2) Opioid use disorder Status: Chronic (3) Diabetes Status: Acute Total Time Spent on D/C: > 30 Minutes Date of Service: Aug 29, 2025 Billing Provider: GRADY MORRIS MD Common Visit Codes: 90072-ZYQ/OBS DISCH DAY >30min GRADY MORRIS MD Aug 29, 2025 18:51
== END 2025-08-29 14:03 | disposition home or self-care (01) | DRG 425 ==
LOC: ER 15:40 → ED HOLD 22:35 → PCU 3S 08-26 04:42
PROVIDERS: ADMIT Internal Medicine; ATTEND Family Medicine
DX: E83.42 Hypomagnesemia (principal); N17.0 Acute kidney failure with tubular necrosis; E72.20 Disorder of urea cycle metabolism, unspecified; E87.20 Acidosis, unspecified; K86.89 Other specified diseases of pancreas; D64.9 Anemia, unspecified; E11.22 Type 2 diabetes mellitus with diabetic chronic kidney disease; E11.65 Type 2 diabetes mellitus with hyperglycemia; E78.5 Hyperlipidemia, unspecified; E87.6 Hypokalemia; I12.9 Hypertensive chronic kidney disease with stage 1 through stage 4 chronic kidney disease, or unspecified chronic kidney disease; N18.9 Chronic kidney disease, unspecified; R74.01 Elevation of levels of liver transaminase levels; K21.9 Gastro-esophageal reflux disease without esophagitis; F31.9 Bipolar disorder, unspecified; G89.29 Other chronic pain; F11.10 Opioid abuse, uncomplicated; K42.9 Umbilical hernia without obstruction or gangrene; F17.210 Nicotine dependence, cigarettes, uncomplicated; N28.1 Cyst of kidney, acquired; N39.0 Urinary tract infection, site not specified; G40.909 Epilepsy, unspecified, not intractable, without status epilepticus; Z88.2 Allergy status to sulfonamides; Z79.899 Other long term (current) drug therapy; Z56.0 Unemployment, unspecified; Z90.49 Acquired absence of other specified parts of digestive tract; Z82.49 Family history of ischemic heart disease and other diseases of the circulatory system; Z98.51 Tubal ligation status
CPT/HCPCS: 36415; 70450; 71045; 74176; 76700; 80048; 80053; 80061; 80305; 80320; 80329; 81001; 82140; 82550; 82570; 82948; 83036; 83605; 83735; 83880; 83930; 83935; 84100; 84133; 84145; 84300; 85008; 85025; 85610; 85730; 86705; 86706; 86709; 86803; 87040; 87081; 87088; 87207; 87340; 87522; 93005; 93306; 93925; 93970; 96360; 99291; A4314; A6402; A6446; G0378; J0696; J1644; J2405; J2543; J3490; J7030; J7040; J7070; J7120

== ENCOUNTER 2025-08-30 17:31 | Inpatient (IN) | payer MEDICAID ==
[~2025-08-30] VITALS: Ht 154.9 cm; Wt 60.0 kg
[~2025-08-30 17:31] MED LIST changes: -LISI20TA28 PO; -LOP25T PO; +METO25TA6 PO
--- NOTE | 2025-08-30 18:10 | Physician Documentation ---
History of Present Illness ~ Chief Complaint: 5150 Stated Complaint: 5150 Time Seen by MD: 17:35 Primary Medical Doctor: Kimmie Source: patient Mode of Arrival: EMS Exam Limitations: no limitations HPI Patient presents via EMS secondary to 5150 written by LLOYD. Patient was discharged from the hospital yesterday with multiple discharge diagnoses including UTI, high ammonia levels, metabolic encephalopathy and others. She this is her daughter. Her daughter states her behavior has been different and is acting erratic. She has not eaten for 24 hours. Not taking her medications as prescribed. Per EMS she was not willing to come to the hospital willingly. They were concerned for her well-being in his especially considering she isn't eating, drinking or caring for herself appropriately. Therefore, a 5150 was written. Patient denies chest pain, pressure, shortness for breath, abdominal pain, urinary symptoms or any other complaints. She is tremulous on exam but otherwise, answering questions. Complains of being cold. Medication Reconciliation Allergies: Coded Allergies: Sulfa (Sulfonamide Antibiotics) (Verified Allergy, Severe, HIVES + SWELLING, 08/30/25) Scheduled Atorvastatin Calcium (Atorvastatin Calcium), 1 TAB PO HS, (Reported) Diltiazem HCl (Diltiazem 24Hr ER), 1 CAP PO DAILY, (Reported) Gabapentin (Gabapentin), 1 TAB PO TID, (Reported) Metformin Hcl (Metformin Hcl), 1 TAB PO Q12H, (Reported) Metoprolol Tartrate (Metoprolol Tartrate), 1 TAB PO BID, (Reported) Scheduled PRN Clonidine HCl (Clonidine HCl), 1 TAB PO TID PRN for for anxiety/agitation, (Reported) Furosemide (Furosemide), 1 TAB PO DAILY PRN for Edema, (Reported) Discontinued Medications Buprenorphine Hcl (Buprenorphine Hcl), 1 TAB SL TID, (Reported) Discontinued Reason: completed med therapy Lisinopril (Lisinopril), 1 TAB PO HS, (Reported) Discontinued Reason: patient no longer taking Metoprolol Tartrate* (Lopressor tablet*), 1 TAB PO BID, (Reported) Discontinued Reason: patient no longer taking Quetiapine Fumarate (Seroquel), 1 TAB PO QAM, (Reported) Discontinued Reason: completed med therapy Quetiapine Fumarate (Seroquel), 4 TAB PO HS, (Reported) Discontinued Reason: completed med therapy Valacyclovir HCl (Valacyclovir), 1 TAB PO BID Discontinued Reason: completed med therapy Past Medical History Past Medical History: Seizures, Hypertension, Cholelithiasis, Diabetes, Thyroid (unspecified) Past Surgical History: other Patient History: FH: heart disease MOTHER Physical Exam Vital Signs: RN Vital Signs have been reviewed: Yes, Temperature: 98.8, Heart Rate: 127, Respiratory Rate: 19, BP: 99/62, Pulse Oximetry: 99, Weight: 60.600 Oxygen Flow Rate: 0 Pulse Oximetry Reflects: adequate oxygenation Physical Exam General: Awake, alert, oriented. Tremulous. Neck: Supple. Normal range of motion. No JVD Respiratory: Lungs are clear to auscultation bilaterally. No respiratory distress. Chest: Normal shape and size. No accessory muscle use. Cardiovascular: Regular rate and rhythm. S1-S2. No murmur, gallop, rub. Gastrointestinal: Abdomen is soft. Nontender to palpation. Bowel sounds present. Extremities:+ one edema. No cyanosis or clubbing. Neurologic: Alert and oriented x4. Nonfocal Psychiatric: Normal mood and affect. Skin: Normal color. Warm and dry. Progress Results/Orders Results/Orders Orders - ODETTE HAYWARD LEGAL MEDIATOR Close Observation Level (08/30/25 17:44) Completed Orders - ODETTE HAYWARD LEGAL MEDIATOR Cbc/Diff (08/30/25 17:44) Hcg, Ur Ql (08/30/25 17:44) Drug Screen, Urine (08/30/25 17:44) Ethanol (08/30/25 17:44) TSH (08/30/25 17:44) Ammonia (08/30/25 17:44) CMP (08/30/25 17:44) Stat Ekg (08/30/25 ) Occult Bld Stool (08/31/25 12:13) Ua With Microscopic (08/31/25 15:10) Medications Received in ER Medications (Trade) Dose Ordered Sig/Matthew Route PRN Reason Start Time Stop Time Status Last Admin Dose Admin (Neurontin capsule) 600 mg TID PO 08/31/25 13:00 08/31/25 13:17 600 MG Vital Signs 08/30/25 08/30/25 08/30/25 08/31/25 17:37 18:19 19:05 05:32 Temp 98.8 95.9 Pulse 127 107 Resp 19 16 17 16 B/P (MAP) 99/62 102/80 (87) Pulse Ox 99 97 O2 Flow Rate 0 08/31/25 08/31/25 08/31/25 06:15 06:15 13:15 Temp 97.0 98.4 Pulse 89 94 Resp 18 18 14 B/P (MAP) 145/88 (107) 102/69 (80) Pulse Ox 99 98 O2 Flow Rate 0 0 Laboratory Tests Test 08/30/25 17:50 08/30/25 18:15 08/31/25 12:13 SARS-CoV-2 Antigen (Rapid) Negative White Blood Count 7.7 Red Blood Count 1.87 L Hemoglobin 8.1 L Hematocrit 24.6 L Mean Corpuscular Volume 131.7 H Mean Corpuscular Hemoglobin 43.3 H Mean Corpuscular Hemoglobin Concent 32.9 L Red Cell Distribution Width 18.9 H Platelet Count 234 Mean Platelet Volume 7.7 Neutrophils (%) (Auto) 73.0 Lymphocytes (%) (Auto) 17.4 L Monocytes (%) (Auto) 8.6 Eosinophils (%) (Auto) 0.7 Basophils (%) (Auto) 0.3 Neutrophils # (Auto) 5.6 Lymphocytes # (Auto) 1.3 Monocytes # (Auto) 0.7 Eosinophils # (Auto) 0.1 Basophils # (Auto) 0.0 CBC Comment Platelet Estimate Normal Red Blood Cell Morphology Perf Polychromasia 1+ Basophilic Stippling Anisocytosis 2+ Macrocytosis 3+ Stomatocytes 2+ Sodium Level 146 H Potassium Level 4.3 Chloride Level 111 H Carbon Dioxide Level 26.0 Anion Gap 9 Blood Urea Nitrogen 6 L Creatinine 1.10 H Estimated GFR/1.73 m2 51 BUN/Creatinine Ratio 5.5 L Glucose Level 115 H Calcium Level 7.7 L Total Bilirubin 0.6 Aspartate Amino Transf (AST/SGOT) 33 Alanine Aminotransferase (ALT/SGPT) 66 Alkaline Phosphatase 288 H Ammonia 44 H Total Protein 5.7 L Albumin 1.8 L Globulin 3.9 Albumin/Globulin Ratio 0.5 L Thyroid Stimulating Hormone (TSH) 1.81 Chemistry Comments Ethyl Alcohol Level < 10 Stool Occult Blood Positive H Re-Evaluation Re-Evaluation : Re-Evaluation Time: 12:31 Progress 08/31/25 I was asked to re-evaluate the patient at the request of the nurses, due to her behavior and her recent medical condition. Patient was admitted to this hospital between August 25 and August 28 for UTI and encephalopathy, and left early from that admission despite being asked to stay because they did not feel she was stable for discharge. At that time the patient had clear mentation. She is now brought back on a 5150 with new erratic behavior changes, not eating, not drinking, not taking her medications, and not taking care of herself. Review of the labs today show significant continuing derangement, including persistent hypocalcemia, persistent elevated ammonia, and CBC which shows her hemoglobin has dropped from 9.5-8.1 since her admission. Examination shows that the patient frequent guaiac-positive stools. Her behavior has been altered while in the emergency department, but not in such a way as to be consistent with bipolar disorder, a mental health diagnosis which she carries. It is my impression that the patient is impaired but from a medical standpoint, not psychiatric and requires readmission for further evaluation and management, especially of her rapidly dropping hemoglobin and GI bleed. Hospitalist service paged at this time. [address] Lopez, who kindly agrees to admit for further evaluation. Medical Decision Making Findings Patient presents as a 5150. She had been recently discharged from the hospital with full workup. Her lab eval today is without acute abnormalities at dB from her previous workup. From a medical standpoint patient is cleared for evaluation by Psychiatry. Transfer orders for [facility]: At this time there is no evidence of an emergent medical condition that would preclude (admission/transfer) to a psychiatric unit via [facility] protocol for further psychiatric, as well as medical evaluation and treatment. At this time I have no reason to believe that transfer via [facility] protocol would have serious medical compromise in the patient's health. Patient continued to act erratically. Therefore, further testing was completed. Suspect ongoing metabolic encephalopathy. She has had diarrhea with blood in her stool. Being admitted for further evaluation and management. Differential Dx:Considerations: Include: Alcohol abuse, Anxiety, Bipolar disorder, Conversion disorder, Depression, Encephaloathy, Panic disorder, Personality disorder Departure Admitted to Inpatient Unit: yes, to hospitalist Impression: Primary Impression: Altered mental status Qualified Codes: R41.82 - Altered mental status, unspecified Additional Impressions: Encephalopathy Qualified Codes: G93.40 - Encephalopathy, unspecified Hyperammonemia Hypocalcemia GI bleed Qualified Codes: K92.2 - Gastrointestinal hemorrhage, unspecified Anemia, iron deficiency Qualified Codes: D50.0 - Iron deficiency anemia secondary to blood loss (chronic) Condition: Guarded Referrals: NO PRIMARY CARE PROVIDER (PCP) Signature Scribe Signature: No scribe Attestation: The note accurately reflects work and decisions made by me.Odette Hayward - JOCELINE 08/31/25 19:15 This note was created with the assistance of voice recognition software whereby errors in grammar, syntax, and/or spelling may have occurred despite active proofreading efforts by the author. Please do not hesitate to contact the provider for clarification or for questions regarding the content of this document. ODETTE HAYWARD NP Aug 30, 2025 18:09 NICOLAS VALDES MD Aug 31, 2025 11:39
[2025-08-30 18:36] LABS: MEAN PLATELET VOLUME 7.7 FL (7.4-10.4); RED CELL DISTRIBUTION WIDTH 18.9 % (11.5-14.5)
[2025-08-30 18:55] LABS: CREATININE 1.10 MG/DL (0.40-0.90); TOTAL CARBON DIOXIDE 26.0 MMOL/L (24-32); eCRCL 43 ML/MIN; eGFR 51 ML/MIN
[2025-08-30 19:00] LABS: ETHANOL < 10 MG/DL (<10)
[2025-08-30 19:02] LABS: PLATELET ESTIMATE NORMAL
--- NOTE | 2025-08-30 19:22 | ELECTROCARDIOGRAPH REPORT ---
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 Avery Delacruz Measurements Intervals [place] Rate: 97 P: 9 [place]: 132 QRS: -3 QRSD: 57 T: 0 QT: 456 QTc: 580 Interpretive Statements Sinus rhythm Low voltage, precordial leads Abnormal R-wave progression, early transition Minimal ST depression, diffuse leads Prolonged QT interval Baseline wander in lead(s) V2 Electronically Signed On 09-12-2025 7:52:[address] Avery Delacruz Please click the below link to view image of tracing.
[2025-08-31 12:55] LABS: OCCULT BLOOD STOOL POSITIVE (Neg)
--- NOTE | 2025-08-31 13:32 | HISTORY AND PHYSICAL ---
History & Physical Providers to Chief complaint, altered level of consciousness ~ History of Present Illness Reason for Admit\Complaint: As above History of Present Illness This is a 55 years old female with history of multiple medical problems including diabetes mellitus type 2, history of opioids abuse, clean now, history of bipolar disorder, seizure disorder hypertension, hypothyroidism, gait disorder unable to ambulate independently now, hypoalbuminemia, chronic kidney disease, presented today to emergency department chief complaint altered level of consciousness; in addition Patient presents via EMS secondary to 5150 written by LLOYD. Patient was discharged from the hospital yesterday with multiple discharge diagnoses including UTI, high ammonia levels, metabolic encephalopathy and others. She this is her daughter. Her daughter states her behavior has been different and is acting erratic. She has not eaten for 24 hours. Not taking her medications as prescribed. Per EMS she was not willing to come to the hospital willingly. They were concerned for her well-being in his especially considering she isn't eating, drinking or caring for herself appropriately. Therefore, a 5150 was written. Patient denies chest pain, pressure, shortness for breath, abdominal pain, urinary symptoms or any other complaints. She is tremulous on exam but otherwise, answering questions. Complains of being cold. In emergency department patient was evaluated by physician was diagnosed with altered level of consciousness metabolic encephalopathy and decision was made to admit patient for further evaluation and treatment, FO BS test was found to be positive, no additional complaint or concern. Allergies: Coded Allergies: Sulfa (Sulfonamide Antibiotics) (Verified Allergy, Severe, HIVES + SWELLING, 08/30/25) Home Medications Home Medications Active Reported Metoprolol Tartrate 25 Mg Tablet 1 Tab PO BID Diltiazem 24Hr ER (Diltiazem HCl) 120 Mg Cap.er.24h 1 Cap PO DAILY Metformin Hcl 500 Mg Tablet 1 Tab PO Q12H Gabapentin 600 Mg Tablet 1 Tab PO TID Furosemide 20 Mg Tablet 1 Tab PO DAILY PRN Clonidine HCl 0.1 Mg Tablet 1 Tab PO TID PRN Atorvastatin Calcium 20 Mg Tablet 1 Tab PO HS Past Medical History Past Medical History As in HPI Past Surgical History Surgical History Comment As in HPI Family History Family History: Family history was reviewed; no changes noted. Past Social History Social History Comment Deny illicit drug abuse , alcohol use live with the family good social support, positive for chronic tobacco abuse quit two days ago. Health Maintenance Health Maintenance Noncontributory ROS ROS Constitutional : no fever , no chills, or weakness. Positive for altered level of consciousness, No diaphoresis. Allergic/Immunologic, no lymphadenopathy, no hives, no skin eruptions. Eyes, no recent visual changes, no eye pain, no photophobia. Ears, nose, mouth, throat, no sore throat, no nosebleed, no ear pain. Cardiovascular, no palpitations, skipped beats, chest pain, no peripheral edema, Respiratory, no dyspnea, orthopnea, cough, hemoptysis, chest wall pain. Gastrointestinal, no abdominal pain, nausea, vomiting, constipation or diarrhea. : no dysuria, hematuria, pelvic pain, urethral d/c. Endocrine, no polyuria, polydipsia, recent unintentional weight gain or loss. Hematologic/Lymphatic, no petechiae, no enlarged lymph nodes, no bone pain. Integumentary, no rash, no skin lesions, Musculoskeletal, no muscle aches, or pain, no muscle cramps, no recent change in gait Neurological, no dizziness, no headache, no syncope, no paresthesia. Psychiatric, no delusions, visual hallucinations, or hearing hallucinations. ROS - in rest is as in HPI. Exam Vitals: Vital Signs Date Time Temp Pulse Resp B/P (MAP) Pulse Ox O2 Delivery O2 Flow Rate FiO2 08/31/25 13:15 98.4 94 14 102/69 (80) 98 0 Vital signs, stable ,afebrile. Pulse Oximetry reflects adequate oxygenation. BMI is twenty-five, weight 60 kg General: well developed, well nourished. Awake , alert, and oriented x4, intermittently confused, resting comfortably in the bed, in no acute distress . Skin: Warm, dry, no pallor, no rash or petechiae. HEENT: Atraumatic, normocephalic, EOMI, anicteric sclera B; pink conjunctiva; PERRLA, normal oropharynx, moist oral and nasal mucosa. Tympanic membrane , nose , throat clear. Neck: Trachea midline. Supple, full range of motion, no JVD, bruit , hepatojugular reflex , lymphadenopathy or masses, or other lesions Cardiac: Regular rhythm, regular rate no murmurs, rubs, or gallops. Normal S1 and S2, no S3 noticed. PMI is normal. Respiratory: Equal breath sounds bilaterally, no tachypnea; lungs clear to auscultation bilaterally, no wheezing ,rub or rales, or crackles. Chest wall is symmetric and without deformity. No signs of trauma. Chest wall is nontender. No signs of respiratory distress. Resonance is normal upon percussion bilaterally. Gastrointestinal: Abdomen symmetric, non-distended, soft, non-tender, normal bowel sounds x4 quadrant, normoactive, no hepatosplenomegaly , no masses , no bruit, no flank pain bilaterally. No voluntary guarding, rebound, or rigidity. No tenderness to percussion. No pulsatile masses. Equal femoral pulses. No Ramirez's sign or McBurney point tenderness. Back; no CVA tenderness bilaterally, no deformities. Neck and back are without deformity as well. No tenderness noted on palpation of the spinous processes. Spinous processes are midline. Cervical, thoracic, and lumbar paraspinal muscles are not tender and are without spasm. Musculoskeletal: Extremities, normal range of motion, non-tender, muscle strength 5/5 x 4. Negative Homans signs bilaterally on lower extremity. Distal pulses full symmetrical, no clubbing, cyanosis , edema. Neurological: Speech is clear, alert, and oriented x 4. No motor or sensory deficit, deep tendon reflexes normal, cerebellar intact. Cranial nerves II-XII intact. Psych: Alert and or appropriate, normal affect. Vascular: Good distal pulses, which are equal x4; capillary refill less than 2 seconds. Lymphatic, no lymphadenopathy. Diagnostic Data Last Recorded Lab Results: 08/30/25181408/30/251814 Advance Care Planning Advanced Care plannin - 30 Minutes Additional Plan Assessment Dehydration associated with hypovolemia and hypernatremia Hyperammonemia Metabolic encephalopathy secondary to above Diabetes mellitus type 2 poor control Bipolar Disorder in exacerbation Gravely disabled patient Acute kidney injury GFR 51 Gait disorder, unable to ambulate independently Generalized weakness Hypoalbuminemia Positive FOBS test, rule out GI bleed History of opioids use disorder, sober now Additional comorbidities, history of seizure, hypertension, hypothyroidism, chronic kidney disease, history of GI bleeding Plan IV fluids keep patient well hydrated euvolemic CT chest abdomen pelvis and head pending PT evaluation and treatment Hyperglycemia sliding scale Lactulose and rifaximin on board Additional lab work pending May need GI doctor evaluation May need psychiatric doctor evaluation I reconciled home medications DVT gastropathy prophylaxis addressed Sepsis Screening Reassessment Date: Aug 31, 2025 Date of Service: Aug 31, 2025 Billing Provider: GRADY MORRIS MD Common Visit Codes: 19404-BGT/OBS SAME DATE (HIGH) Secondary Visit Codes: 19110-[id number] CARE PLAN 30 MINUTES GRADY MORRIS MD Aug 31, 2025 13:32
[2025-08-31] MEDS ORDERED: acetaminophen 650mg rectal suppository RC PRN (13:35)
[2025-08-31] MEDS ORDERED: magnesium Cl slow-release 64mg tablet PO PRN (13:35)
[2025-08-31] MEDS ORDERED: ondansetron/PF 4mg/2ml inj IV PRN (13:35)
[2025-08-31] MEDS ORDERED: normal saline 1000ml 1,000 ML IV SCH (13:35)
[2025-08-31] MEDS ORDERED: ondansetron 4mg rapidly disintigrating tab PO PRN (13:35)
[2025-08-31] MEDS ORDERED: bisacodyl 10mg suppository rectal RC PRN (13:35)
[2025-08-31] MEDS ORDERED: HYDROcodone/acetaminophen 10/325mg tab PO PRN (13:35)
[2025-08-31] MEDS ORDERED: magnesium sulf-water 2g/50mL 50 ML IV PRN (13:35)
[2025-08-31] MEDS ORDERED: morphine 4 MG/ML inj SYRINge IV PRN (13:35)
[2025-08-31] MEDS ORDERED: potassium Cl 20 mEq SR tablet PO PRN ×2 (13:35)
[2025-08-31] MEDS ORDERED: magnesium hydroxide 30ml (MOM) UD suspension PO PRN (13:35)
[2025-08-31] MEDS ORDERED: magnesium sulf-water 4G/100mL 100 ML IV PRN (13:35)
[2025-08-31] MEDS ORDERED: mag hydrox/Alum hydrox/simeth 30ml oral suspension PO PRN (13:35)
[2025-08-31] MEDS ORDERED: glucagon, human recombinant 1mg kit SUBCUT PRN (14:15)
[2025-08-31] MEDS ORDERED: DEXTROSE 15 GM of carb/4 tabs (each vial/BOTTLE has 4 tablets) PO PRN ×2 (14:15)
[2025-08-31] MEDS ORDERED: dextrose 50%-water 50ml dispensing syringe IV PRN ×2 (14:15)
--- NOTE | 2025-08-31 14:27 | RADIOLOGY REPORT ---
CLINICAL INFORMATION: Acute loss of consciousness. TECHNIQUE: Axial imaging was obtained through the brain without contrast. Coronal and sagittal reformatted images were obtained, reviewed, and stored. Images were reviewed in brain and bone windows. All CT scans at this medical facility are performed using dose modulation techniques as appropriate to a performed exam including the following: Automated exposure control was utilized; adjustment of the MA and/or KV according to patient size; and use of iterative reconstruction technique. CTDIvol = 51.26, 60.7 mGy DLP = 1673.51 mGy-cm COMPARISON: CT CT HEAD on DOS: 08/25/25, MR MRI HEAD on DOS: 05/26/24, CT CT STROKE ALERT on DOS: 05/26/24 FINDINGS: Portions of the examination were repeated due to motion artifact. There is no acute intracranial hemorrhage. No mass effect or midline shift. The ventricles and sulci are within normal limits in size for age. Basal cisterns are patent. The calvarium is unremarkable. Paranasal sinuses and mastoid air cells are clear. IMPRESSION: No CT evidence of acute intracranial abnormality.
--- NOTE | 2025-08-31 14:45 | RADIOLOGY REPORT ---
CLINICAL INFORMATION: Acute loss of consciousness, sepsis. TECHNIQUE: Axial CT images of the chest, abdomen, and pelvis were obtained without IV contrast. Coronal and sagittal reformatted images were obtained, reviewed, and stored. Evaluation of the parenchymal organs and vasculature is limited without IV contrast. Evaluation of the bowel and mesentery is limited without oral contrast. All CT scans at this medical facility are performed using dose modulation techniques as appropriate to a performed exam including the following: Automated exposure control was utilized; adjustment of the MA and/or KV according to patient size; and use of iterative reconstruction technique. CTDIvol = 21.26, 18.98, 0.14 mGy DLP = 1605.39 mGy-cm COMPARISON: CT CT ABDOMEN PELVIS on DOS: 08/25/25, DI CHEST,SINGLE VIEW on DOS: 08/25/25, DI CHEST,SINGLE VIEW on DOS: 05/26/24 FINDINGS: CT CHEST: Aorta: No aneurysm. Mild atherosclerotic calcification. Cardiac: Heart size is within normal limits. No significant coronary artery calcification. There is aortic valvular calcification. Mediastinum/luis: No mass or adenopathy. Lungs: Lungs are clear. Pulmonary arteries: No gross abnormality. Chest wall: No mass or other abnormality. Bones: No fracture or suspicious intraosseous lesions. CT ABDOMEN/PELVIS: Liver: Unremarkable. No abnormal density or focal lesion identified on noncontrast CT. Biliary: Cholecystectomy. Spleen: Unremarkable. Pancreas: Atrophic pancreas. Adrenal glands: Unremarkable. No mass. Kidneys: No hydronephrosis. 2 mm nonobstructing calculus in the upper pole of the left kidney. No obstructing calculi visualized. Exophytic low-density lesion at the inferior pole of the right kidney measures up to 1.8 cm, likely a cyst based on its density. Aorta: Scattered atherosclerotic calcification. No abdominal aortic aneurysm. Retroperitoneum: No mass or lymphadenopathy. Bowel/mesentery: Mildly distended fluid-filled small bowel loops. No transition point to suggest small bowel obstruction. Appendix is visualized and appears unremarkable. There is liquid stool in the colon. Pelvic organs: Grossly unremarkable. Bladder: Unremarkable. No mass. Abdominal wall: Diffuse anasarca. Bones: No fracture or focal intraosseous lesion. IMPRESSION: 1. Nonspecific mildly distended fluid-filled small bowel loops with liquid stool in the colon. Findings may be seen with ileus or enterocolitis in the appropriate clinical setting. No small bowel obstruction. 2. Small nonobstructing left renal calculus. No hydronephrosis or obstructing calculi. 3. No evidence of acute disease in the chest. 4. Additional nonacute findings as described above.
[2025-08-31 14:59] LABS: APTT 27 SECONDS (22-32); INR 1.1 INR
[2025-08-31 15:09] LABS: PHOSPHORUS 3.1 MG/DL (2.3-4.5); PRO BRAIN NATRIURETIC PEPTIDE 4413 PG/ML (0-125)
[2025-08-31 15:23] LABS: LEUKOCYTE ESTERASE ,URINE TRACE (Neg); NITRITES, URINE NEGATIVE (Neg); OCCULT BLOOD,URINE TRACE-INTACT (Neg)
[2025-08-31 15:24] LABS: URINE HCG NEGATIVE (NEG)
[2025-08-31 15:30] LABS: UA COLLECTION TYPE STRAIGHT CATH
[2025-08-31 15:32] LABS: MUCUS STRANDS NONE SEEN /LPF (Neg); RENAL CELLS, URINE FEW /HPF; SQUAMOUS EPITHELIAL CELL,UR FEW /LPF (FEW)
[2025-08-31 15:33] LABS: FINE GRANULAR CAST 0-3 /LPF (NEGATIVE); WBC CLUMPS,URINE FEW /HPF (NEGATIVE)
[2025-08-31 15:40] LABS: URINE AMPHETAMINE SCREEN NEGATIVE (Neg); URINE BARBITUATE SCREEN NEGATIVE (Neg); URINE BENZODIAZEPINES SCREEN NEGATIVE (Neg); URINE CANNABINOID SCREEN NEGATIVE (Neg); URINE COCAINE SCREEN NEGATIVE (Neg); URINE METHADONE SCREEN NEGATIVE (Neg); URINE OPIATE SCREEN NEGATIVE (Neg); URINE PHENCYCLIDINE SCREEN NEGATIVE (Neg)
[2025-08-31] MEDS ORDERED: dextrose 5%-1/4 NS 250ml IV soln IV SCH (16:00)
[2025-08-31] MEDS: INSULIN LISPRO 100 UNIT/ML INSULN.PEN MULTI-DOSE SQ SCH (17:00)
[2025-08-31] MEDS: K and/or MAG REPLACEMENT MC SCH (20:00)
[2025-08-31] MEDS: rifaximin 550mg tablet PO SCH (20:00)
[2025-08-31] MEDS: docusate sod 100mg capsule PO SCH (20:00)
--- NOTE | 2025-08-31 20:33 | RADIOLOGY REPORT ---
EXAM: DI HAND, COMPLETE (3VW MIN) INDICATION: HAND PAIN TECHNIQUE: 3 views of the right hand COMPARISON: None FINDINGS/IMPRESSION: No radiographic evidence of an acute osseous abnormality. There is no acute fracture, osseous malalignment, or aggressive focal osseous lesion. Mild degenerative change of the 1st carpometacarpal joint negative ulnar variance.
[2025-08-31] MEDS: insulin glargine (Lantus) pen - multi-dose SQ SCH (21:00)
[2025-08-31] MEDS: lactulose 20gm/30ml cup PO SCH (21:02)
[2025-08-31] MEDS: normal saline 1000ml 1,000 ML IV SCH (21:05)
[2025-09-01] VITALS (7 sets, daily range): BP systolic 116–142; BP diastolic 67–79; PULSE 74–109; RESP 12–18; TEMP 96.6–97.7; O2SAT 95–98
[2025-09-01 01:49] LABS: MEAN PLATELET VOLUME 7.7 FL (7.4-10.4); RED CELL DISTRIBUTION WIDTH 18.8 % (11.5-14.5)
[2025-09-01 02:06] LABS: CREATININE 1.04 MG/DL (0.40-0.90); TOTAL CARBON DIOXIDE 27.6 MMOL/L (24-32); eCRCL 46 ML/MIN; eGFR 55 ML/MIN
[2025-09-01] MEDS: pantoprazole 40mg Tablet.DR PO SCH (07:30)
[2025-09-01] MEDS: diltiazem CD 120mg capsule (once-daily) PO SCH (08:00)
[2025-09-01 08:30] LABS: MEAN PLATELET VOLUME 7.6 FL (7.4-10.4); RED CELL DISTRIBUTION WIDTH 18.0 % (11.5-14.5)
[2025-09-01] MEDS: Lactulose Enema **for rectal use only RC ONE (16:40)
--- NOTE | 2025-09-01 21:25 | PROGRESS NOTE ---
Daily Progress Note Providers to CC ~ Antibiotic Timeout Antibiotic Ordered?: No Subjective The patient is confused is refusing all medications a lactulose retention enema was ordered today Objective Vital Signs Date Time Temp Pulse Resp B/P (MAP) Pulse Ox O2 Delivery O2 Flow Rate FiO2 09/01/25 20:00 81 09/01/25 15:00 96.7 14 116/77 (90) 98 Room Air 09/01/25 06:30 0 Result Diagram: 09/01/25 0804 09/01/25 0132 Gen. No acute distress alert confused Lungs clear to ascultation bilaterally, no wheezes rales or rhonchi appreciated Heart normal sinus rhythm no murmurs rubs or clicks noted Abdomen soft nontender bowel sounds are normoactive Lower extremities no clubbing cyanosis, nor edema appreciated bilaterally Coagulation Studies Laboratory Tests Test 08/31/25 14:21 Prothrombin Time 11.5 SECONDS (9.0-12.0) INR International Normalized Ratio 1.1 INR Activated Partial Thromboplast Time 27 SECONDS (22-32) Coagulation Comments Problem\Assessment\Plan Problems/Diagnosis: (1) Gravely disabled Assessment & Plan: The patient is gravely disabled and was brought by EMS secondary to 5150 written by RPIsabell- the patient remains encephalopathic # gravely disabled # was on a 5150 by [employer] # bipolar disorder 1799 and sitter is ordered # metabolic encephalopathy # elevated serum ammonia level The patient is refusing oral medications Lactulose retention enema Monitor daily serum ammonia levels # macrocytic anemia Monitor daily CBC # seizure disorder The patient has a sitter Neuro checks Date of Service: Sep 01, 2025 Billing Provider: DOREEN COLLINS DO Common Visit Codes: [id number] INP/OBS CARE(HIGH) DOREEN COLLINS DO Sep 01, 2025 21:25
[2025-09-02] VITALS (7 sets, daily range): BP systolic 111–129; BP diastolic 71–79; PULSE 88–117; RESP 10–20; TEMP 97.6–99.2; O2SAT 93–100
[2025-09-02 06:27] LABS: MEAN PLATELET VOLUME 7.6 FL (7.4-10.4); RED CELL DISTRIBUTION WIDTH 18.0 % (11.5-14.5)
[2025-09-02 06:59] LABS: CREATININE 1.00 MG/DL (0.40-0.90); TOTAL CARBON DIOXIDE 25.1 MMOL/L (24-32); eCRCL 47 ML/MIN; eGFR 57 ML/MIN
[2025-09-02] MEDS ORDERED: rifaximin 20mg/ml oral suspension 60 ML BOTTLE PO SCH ×2 (10:58→13:52)
[2025-09-02] MEDS: potassium Cl 40MEQ/1/2NS 520ml 520 ML IV PRN (13:06)
--- NOTE | 2025-09-02 13:56 | PROGRESS NOTE ---
Daily Progress Note Providers to CC ~ Antibiotic Timeout Antibiotic Ordered?: Yes Subjective No acute events overnight. Patient examined at bedside. No new complaints, not in acute distress. Vss, downtrending Hgb with positive guaiac. Ammonia on admission was mildly elevated. No cirrhosis. Objective Vital Signs Date Time Temp Pulse Resp B/P (MAP) Pulse Ox O2 Delivery O2 Flow Rate FiO2 09/02/25 08:00 88 09/02/25 06:00 97.6 15 124/72 (89) 97 Room Air 09/01/25 06:30 0 Result Diagram: 09/02/25 0611 09/02/25 0611 Physical Exam General: Generalized weakness, awake and alert, NAD HEENT: Normocephalic, PERRLA Neck: Supple, trachea midline, no JVD Chest: Clear to auscultation bilaterally Cardiovascular: RRR, S1&S2 GI: Soft and nontender Extremities: No cyanosis/clubbing/or edema [employer]OR [employer]: CN II-XII intact, no focal deficits Musculoskeletal: No paraspinal muscle tenderness, no muscle spasm Skin: Warm and intact Coagulation Studies Laboratory Tests Test 08/31/25 14:21 Prothrombin Time 11.5 SECONDS (9.0-12.0) INR International Normalized Ratio 1.1 INR Activated Partial Thromboplast Time 27 SECONDS (22-32) Coagulation Comments Problem\Assessment\Plan Problems/Diagnosis: (1) Gravely disabled Assessment & Plan Gravely disabled Bipolar disorder GIB- POA Anemia Hypernatremia -1798 hold, pending psych consult 09/02: downtrending Hgb with positive guaiac. Ammonia on admission was mildly elevated. No cirrhosis. Consulted GI Dr. South; EGD & colonoscopy tomorrow; HyperNa on NS, start D5W, continue PPI Macrocytic anemia -supportive care Seizure disorder -Keppra Date of Service: Sep 02, 2025 Billing Provider: TYRELL BAR Common Visit Codes: [id number] INP/OBS CARE(HIGH) TYRELL BAR Sep 02, 2025 13:56
--- NOTE | 2025-09-02 17:41 | PROGRESS NOTE ---
Progress Note Dictate Providers to CC ~ Progress Note: HPI: Concern that altered level of consciousness is related to mental health v.s. Medical etiology. Was admitted on the 08/02, was discharge from the hospital 07/31. No clear medical etiology for altered mental status. Brought in on 5150 by [place] [employer]. Doctor placed on 1798 [facility] will come and evaluate. Has been refusing all medications by mouth. She tried to walk out yesterday and go home, soft restraints orders. Nurse minimal change in level of consciousness- (from A&Ox1 to A&Ox2). Endorses significant depression this past summer/fall, states everything about life has been challenging. Per daughter- there was a change in mentation before she discharged from [facility] last week- for example she was repeatedly asking about her son (wasnt relevant at all), was tellign daughter that she was being release when [facility] wasnt at that point, daughter raised concerns for altered mental status - was told she was medically fine and the patient discharaged home on 08/29. Then monday after she got home and stopped eating, stopped taking her medication, would make nonsensical statements and behavior- ex. Daughter found the nitroglycerin pills spilled all over the floor and when her daughter expressed concern about that the patient reacted by stating give me give me give me! was rambling on about baby powder and the dog, was making nonsensical replies to questions. Daughter called 911 for additional help, [facility]'s department who hand cuffed her and dragged her back yet. Psychiatric History: depression, bipolar, hx of overdosing when daughter was a child- was in intensive care for one week, has had severe and persistent debilitating mental health difficulties throughout her life. Last year she was on a 5150 for a similar circumstance, they found she had a severe infection. States that since previous hospitalization there hasnt been a full resolution in change in mental status/confusion since previous hospitalization. It looks like a toddler who couldn't speak to you, they cant tell you what they want but you know they want something. Daughter is [employer] worker- she preps her mothers medications, feeds her, patient still showers mostly independenty. Substances use history: No substance in the past year, no access. Cigarettes- alot She would pretty much use and do anything she could get her hands on stopped about 7 years ago. Two years her significant other and mother , then her dog . Depression worsened after this. Then after inital UTI things have been going down hill. Social history: Today on Assessment: Endorses mental health difficulties. When this provider asked for more details about the nature of her current depression she shut down, would only respond with mmmmm in various pitches depending on the question asked. States she just wants to go home. Still in soft restraints in upper extremities- states it helps her feel safe. Psychiatric Medications: Recent PRNS: Temazepam- helped her Hydroxyzine - Clonidine - Side Effects: Denies No evidence of TD, EPS AIMs: 0 Review of Psychiatric Symptoms: Mood: endorses depression, home sick. Suicide/self-harm: denies Sleep: no sleep- Appetite: poor minimal po intake Energy: poor Anxiety: constance anxiety Irritability: denies Homicidal/Anger: denies Hallucinations/Paranoia: Trauma symptoms: Symptoms related to substance withdrawal: Mental Status Evaluation General Appearance: hospital scrubs, poorly groomed Eye contact: poor, Demeanor: withdrawn Orientation: to person, place, time, situation Speech: Appropriate rate/rhythm/volume Psychomotor Activity: within normal range Abnormal Body Movements: none observed Mood: down Affect: Full range Suicidality: denies suicidal ideation Homicidally: denies Thought content: poverty of thought Thought process: poverty of thought Thought perceptions: no perceptual disorder noted Memory: poor Attention: poor Insight: poor Judgment: poor Current Medical Problems: see hospitalist note Medical History Cardiac HX: Denies TBI Hx: denies Seizure Hx: endorses- per daughter she hasnt been on seizure medication for many years. JOAN Hx: denies - - Diagnoses Seizure disorder (untreated) R/o delirum R/o catatonia Suspect underlying dementia Tobacco use disorder- Hx of polysubstance use Hx Bipolar Disorder - Assessment Based on initial evaluation, including interview and history obtained today, the patient appears to meet criteria for seizure disorder untreated, talked with the patient's daughter who reported that the patient has had a long-standing seizure disorder that has not been treated for the past few years. daughter reports that she tapered her mother off of the seizure medication because it was too sedating leading to significant inactivity. Daughter is the patients [employer] worker/primary caregiver. Will restart Keppra as altered mental status and behavioral changes could be fully distributable to untreated seizure disorder. Based off history attained from her daughter today, strongly suspect underlying dementia etiology which is likely another contributing factor to agitated behaviors and further worsened by current medical issues. MRI ordered to further identify potential cerebrovascular changes. Based off the daughter's report, it appears that the patient has suffered from severe persistent mental illness as well as polysubstance use. Would suspect the severity of mental illness, substance use and length of time in which she has been untreated for a primary seizure disorder has culminated into a deteriorating cognitive state. Will reassess after treatment with keppra, if there is no symptom improvement with Keppra, will further explore underlying etiologies of delirium and catatonia as patient additionally presents with symptoms and behaviors consistent with these disease processes. Safety risk: low risk of imminent self-harm, low risk of externalized violent behaviors Plan Start Keppra 500 mg po BID (ok to give IV if refusing PO medication) MRI of head w/ and w/o contrast Spent approximately 60 minutes reviewing records and test results, assessing and treatment planning, completing care coordination and documenting the encounter. Discussed risks, including possible adverse effects, and benefits of treatment recommendations including no treatment. Voice recognition software may have been used to dictate this note. There may be errors due to use of such software. Reporting of serious errors is appreciated. Antibiotic Ordered?: No Objective Vitals Vital Signs Date Time Temp Pulse Resp B/P (MAP) Pulse Ox O2 Delivery O2 Flow Rate FiO2 09/02/25 15:00 99.0 90 10 123/71 (88) 95 Room Air 09/01/25 06:30 0 Lab Results: 09/02/25 0611 09/02/25 0611 Coagulation Studies Laboratory Tests Test 08/31/25 14:21 Prothrombin Time 11.5 SECONDS (9.0-12.0) INR International Normalized Ratio 1.1 INR Activated Partial Thromboplast Time 27 SECONDS (22-32) Coagulation Comments CODING VISIT-PSYCHIATRY Date of Service: Sep 02, 2025 Billing Provider: HELIO BRADLEY DNP Psych Common Visit Codes: CONSULT ONLY HELIO BRADLEY DNP Sep 02, 2025 17:41
[2025-09-02] MEDS: lactose-reduced food (Ensure Enlive) - 237ml bottle PO SCH (18:00)
--- NOTE | 2025-09-02 19:31 | CONSULTATION ---
DATE OF CONSULTATION: 09/02/2025 DICTATING PHYSICIAN: Vinod South MD REASON FOR CONSULTATION: Anemia and hemoccult positive stool. HISTORY OF PRESENT ILLNESS: The patient is a very poor historian, somewhat confused, not much history can be obtained from the patient. Going through the notes, it is apparent that the patient came because of confusion and she is being managed with lactulose with mildly elevated ammonia to begin with. Subsequently, she got cleared with her mental status apparently. She has shown anemia of significant nature, but she has had elevated MCV. GI bleeding was not suspected because there was no active bleeding seen in the form of melena, hematochezia, or hematemesis. But on stool testing, she was hemoccult positive because of which I have been called for further evaluation. There is no record of she having endoscopy or colonoscopy in the past. She did have a CT scan of the abdomen when she was here because of the suspicion for liver disease and liver was essentially normal. The rest of the CT scan was essentially unremarkable. PAST MEDICAL HISTORY: Not available. FAMILY HISTORY: Not available. PERSONAL HISTORY: Not available. REVIEW OF SYSTEMS: Essentially same as to present illness. PHYSICAL EXAMINATION: On physical exam, she is awake, alert, and appears to be in no apparent distress. Vital signs are normal. Neck is supple. No thyromegaly. Heart and lungs are normal. Abdomen is soft, nontender. No masses. No organomegaly. Bowel sounds are normoactive. Extremities reveal no clubbing, cyanosis or edema. IMPRESSION: A 55-year-old lady with some confusion, admitted with change in mental status. Workup has been essentially negative. She seems to be quite alert and oriented now, but incidentally anemia has been found and hemoccult testing has been done, which was positive. She does have macrocytic anemia, so myelodysplastic syndrome is a possibility; however, hemoccult positive stool needs to be evaluated with bidirectional endoscopic workup. RECOMMENDATIONS: We will proceed with endoscopy and colonoscopy as there is no record of previous endoscopic procedures. The risks and benefits explained, understands and wishes to proceed. Further recommendations will be made after the endoscopic procedures. Vinod South MD TID: [id number] RECEIPT: [id number] SALINA/CARLOS
[2025-09-02] MEDS: PEG 3350/Na sulf,bicarb,Cl/KCl oral sol 4 liter bottle PO ONE (20:05)
[2025-09-02] MEDS: morphine 4 MG/ML inj SYRINge IV PRN (22:38)
[2025-09-03] VITALS (17 sets, daily range): BP systolic 96–127; BP diastolic 14–88; PULSE 65–103; RESP 10–22; TEMP 96.7–98.2; O2SAT 73–100
[2025-09-03] MEDS: HYDROcodone/acetaminophen 5mg/325mg tablet PO PRN (01:53)
[2025-09-03] MEDS ORDERED: LIDOcaine 2% Viscous 15ml cup ONE (08:38)
[2025-09-03] MEDS ORDERED: fentaNYL/PF 50MCG/1 ML 2ML syringe ONE (09:25)
[2025-09-03] MEDS ORDERED: MIDAZolam 1 MG/ML 5ML VIAL ONE (09:25)
[2025-09-03 13:31] LABS: MEAN PLATELET VOLUME 7.4 FL (7.4-10.4); RED CELL DISTRIBUTION WIDTH 17.2 % (11.5-14.5)
[2025-09-03 13:47] LABS: CREATININE 1.05 MG/DL (0.40-0.90); TOTAL CARBON DIOXIDE 23.0 MMOL/L (24-32); eCRCL 45 ML/MIN; eGFR 54 ML/MIN
[2025-09-03] MEDS ORDERED: potassium Cl 20 mEq SR tablet PO PRN ×2 (14:00)
[2025-09-03] MEDS ORDERED: magnesium Cl slow-release 64mg tablet PO PRN (14:00)
[2025-09-03] MEDS ORDERED: magnesium sulf-water 4G/100mL 100 ML IV PRN (14:00)
--- NOTE | 2025-09-03 14:10 | PROGRESS NOTE ---
Daily Progress Note Providers to CC ~ Antibiotic Timeout Antibiotic Ordered?: No Subjective No acute events overnight. Patient examined at bedside. No new complaints, not in acute distress. Vss, labs unremarkable. Underwent EGD with findings notable for LA grade B reflux esophagitis without bleeding, erythematous and eroded mucosa in the antrum and prepyloric region of the stomach, duodenitis, normal 2nd portion of the duodenum. Patient is medically cleared for [facility] evaluation. Objective Vital Signs Date Time Temp Pulse Resp B/P (MAP) Pulse Ox O2 Delivery O2 Flow Rate FiO2 09/03/25 13:40 96 09/03/25 13:39 121/69 (86) 09/03/25 11:00 97.5 17 100 Room Air 09/01/25 06:30 0 Result Diagram: 09/03/25 1323 09/03/25 132 Physical Exam General: Generalized weakness, awake and alert, NAD HEENT: Normocephalic, PERRLA Neck: Supple, trachea midline, no JVD Chest: Clear to auscultation bilaterally Cardiovascular: RRR, S1&S2 GI: Soft and nontender Extremities: No cyanosis/clubbing/or edema IMAGING TECHNICIAN: CN II-XII intact, no focal deficits Musculoskeletal: No paraspinal muscle tenderness, no muscle spasm Skin: Warm and intact Coagulation Studies Laboratory Tests Test 08/31/25 14:21 Prothrombin Time 11.5 SECONDS (9.0-12.0) INR International Normalized Ratio 1.1 INR Activated Partial Thromboplast Time 27 SECONDS (22-32) Coagulation Comments Problem\Assessment\Plan Problems/Diagnosis: (1) Gravely disabled Assessment & Plan Gravely disabled Bipolar disorder GIB- POA Anemia Hypernatremia -1798 hold, pending psych consult 09/02: downtrending Hgb with positive guaiac. Ammonia on admission was mildly elevated. No cirrhosis. Consulted GI Dr. South; EGD & colonoscopy tomorrow; HyperNa on NS, start D5W, continue PPI 09/03: Patient is medically cleared for [facility] evaluation GIB- POA Anemia 09/03: LA grade B reflux esophagitis without bleeding, erythematous and eroded mucosa in the antrum and prepyloric region of the stomach, duodenitis, normal 2nd portion of the duodenum, continue PPI Seizure disorder -[facility] Date of Service: Sep 03, 2025 Billing Provider: TYRELL BAR Common Visit Codes: [id number] INP/OBS CARE(HIGH) TYRELL BAR Sep 03, 2025 14:10
[2025-09-03] MEDS: potassium Cl 40MEQ/1/2NS 520ml 520 ML IV PRN (17:24)
--- NOTE | 2025-09-03 17:33 | RADIOLOGY REPORT ---
EXAM: MR MRI HEAD HISTORY: r/o vascular dementia, nonfocal lesions contributing to altered mental stat TECHNIQUE: Multiplanar and multisequence MR imaging of the head was performed without intravenous contrast.. 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 Small chronic lacunar infarct in the right thalamus. Dilated perivascular space inferior to the left basal ganglia.The ventricles and subarachnoid spaces are normal in size and configuration. Minor patchy FLAIR hyperintensities in the supratentorial white matter consistent with nonspecific white matter disease. There is no midline shift or mass effect. The vascular flow-voids are unremarkable. Diffusion weighted imaging is not indicative of acute or recent infarct. Partially empty sella. IMPRESSION: 1. No acute or recent infarct. 2. 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 3. Minor chronic microvascular ischemic change.
[2025-09-04 02:00] VITALS: BP 123/61; PULSE 64; RESP 14; TEMP 97.8; O2SAT 100
[2025-09-04 05:30] VITALS: BP 99/55; PULSE 88; RESP 14; TEMP 98; O2SAT 99
[2025-09-04 08:00] VITALS: BP_SYST 99; PULSE 77
[2025-09-04 12:22] LABS: MEAN PLATELET VOLUME 7.8 FL (7.4-10.4); RED CELL DISTRIBUTION WIDTH 17.2 % (11.5-14.5)
[2025-09-04 12:38] LABS: CREATININE 1.29 MG/DL (0.40-0.90); TOTAL CARBON DIOXIDE 23.2 MMOL/L (24-32); eCRCL 37 ML/MIN; eGFR 43 ML/MIN
[2025-09-04] MEDS ORDERED: PANT40TA54 PO (15:29)
[2025-09-04] MEDS ORDERED: LEVE250T PO (15:29)
--- NOTE | 2025-09-04 16:45 | PROGRESS NOTE ---
Daily Progress Note Providers to CC ~ Objective Vital Signs Date Time Temp Pulse Resp B/P (MAP) Pulse Ox O2 Delivery O2 Flow Rate FiO2 09/04/25 08:00 Room Air 0.0 09/04/25 08:00 77 09/04/25 05:30 98.0 14 99/55 (70) 99 Result Diagram: 09/04/25 1124 09/04/25 1124 Coagulation Studies Laboratory Tests Test 08/31/25 14:21 Prothrombin Time 11.5 SECONDS (9.0-12.0) INR International Normalized Ratio 1.1 INR Activated Partial Thromboplast Time 27 SECONDS (22-32) Coagulation Comments Problem\Assessment\Plan Problems/Diagnosis: (1) Gravely disabled TYRELL BAR [facility] Sep 04, 2025 16:45
--- NOTE | 2025-09-04 18:11 | DISCHARGE SUMMARY ---
Discharge Summary Providers to CC ~ Discharge Summary Admission Diagnosis: GIB, ALOC Hospital Course DATE OF ADMISSION: 08/31/25 DATE OF DISCHARGE: 09/04/25 Discharge Diagnosis\Comment: Gravely disabled Bipolar disorder GIB- POA Esophagitis Duodenitis Anemia Hypernatremia CKD, stage 3b Hx seizure disorder Operations\Procedures: EGD Consultants: Vinod Black Dr. Psychiatry service JOCELINE Alvarado Complications: None Condition on DC: Stable New Medications: Pantoprazole Sodium (Pantoprazole Sodium) 40 Mg Tablet.dr 1 TAB PO DAILY for 30 Days, #30 TAB 0 Refills Levetiracetam (Levetiracetam) 250 Mg Tablet 500 MG PO BID for 30 Days, #60 TAB Continued Medications: Atorvastatin Calcium (Atorvastatin Calcium) 20 Mg Tablet 1 TAB PO HS Clonidine HCl (Clonidine HCl) 0.1 Mg Tablet 1 TAB PO TID PRN for for anxiety/agitation Diltiazem HCl (Diltiazem 24Hr ER) 120 Mg Cap.er.24h 1 CAP PO DAILY Gabapentin (Gabapentin) 600 Mg Tablet 1 TAB PO TID Metformin Hcl (Metformin Hcl) 500 Mg Tablet 1 TAB PO Q12H, TAB 0 Refills Metoprolol Tartrate (Metoprolol Tartrate) 25 Mg Tablet 1 TAB PO BID Discontinued Medications: Furosemide (Furosemide) 20 Mg Tablet 1 TAB PO DAILY PRN for Edema Discharge Summary: Hospital Course Nichelle Rothman is a 55-year-old female with past medical history of NIDDM, bipolar disorder, seizure disorder, hypertension, hypothyroidism, CKD stage 3b who was brought to the ED by [facility] on 5150 due to being gravely disabled and altered level consciousness. Patient was discharged in a previous stay after being treated for metabolic encephalopathy. Patient's daughter on admission stated patient has not been eating, drinking, or caring for herself. Diagnostic findings were notable for anemia, positive guaiac, mildly elevated serum ammonia with unremarkable liver function test and normal liver revealed on CT. Patient was started on PPI and supportive care. Case was consulted with MARIO South. Patient underwent EGD with findings notable for LA grade B reflux esophagitis without bleeding, erythematous and eroded mucosa in the antrum and prepyloric region of the stomach, duodenitis, normal 2nd portion of the duodenum. Colonoscopy to be done outpatient per Dr. South's recommendation. Patient was evaluated by [facility] UP Jaquelin Alvarado from psychiatry service and was started on levetiracetam. Patient did not experience further complications throughout the entire hospital stay and made a good recovery. Patient was seen and examined on the day of discharge. On day of discharge, vss and labs notable for uptrending H/H and stable renal function. Patient was evaluated by [facility] ham boner and was cleared from hold. All labs, diagnostic workups, discharge plan discussed with patient and her daughter at bedside in details during visit before discharge. All questions and concerns answered to the best of my professional knowledge. Patient is to be discharged with HH and to follow-up with PCP and Dr. South within 2 weeks. Physical Exam General: Generalized weakness, A&Ox3, NAD HEENT: Normocephalic, PERRLA Neck: Supple, trachea midline, no JVD Chest: Clear to auscultation bilaterally Cardiovascular: RRR, S1&S2 GI: Soft and nontender Extremities: No cyanosis/clubbing/or edema RAIL SIGNAL WORKER: CN II-XII intact, no focal deficits Musculoskeletal: No paraspinal muscle tenderness, no muscle spasm Skin: Warm and intact *Problems/Diagnosis: (1) Gravely disabled Status: Resolved Total Time Spent on D/C: > 30 Minutes Date of Service: Sep 04, 2025 Billing Provider: TYRELL BAR Common Visit Codes: 40516-EMR/OBS DISCH DAY >30min TYRELL BAR Sep 04, 2025 18:11
--- NOTE | 2025-09-04 18:54 | PATHOLOGY REPORT ---
[facility] [address] [place] [address] SURGICAL PATHOLOGY REPORT CaseNumber: [id number] Surgeon:Vinod South M.D. CLINICAL INFORMATION CLINICAL INFORMATION: Iron deficiency anemia secondary to chronic blood loss and heme positive stool. DIAGNOSIS DIAGNOSIS: A.DUODENUM, BIOPSY - HISTOLOGICALLY UNREMARKABLE DUODENAL-TYPE MUCOSA DIAGNOSIS: B.GASTRIC ANTRUM, BIOPSY - NO SIGNIFICANT INFLAMMATION, EDEMA, OR VASCULAR CONGESTION - NO INTESTINAL METAPLASIA BY PAS STAINING - NO DYSPLASIA OR MALIGNANCY - NO H. PYLORI ORGANISMS ARE HIGHLIGHTED BY IMMUNOHISTOCHEMISTRY MICROSCOPIC DESCRIPTION A. DUODENUM, BIOPSY MICROSCOPIC DESCRIPTION: Reviewed is a single H&E-stained slide showing serial sections and levels of a single fragment of duodenal type mucosa. There is no evidence of erosion or ulceration. There is no significant variability of villous in size or shape of villous blunting. There is no significant inflammation. There are no dysplastic or neoplastic features. B. GASTRIC ANTRUM, BIOPSY MICROSCOPIC DESCRIPTION: Reviewed is a single H&E-stained slide showing serial sections and levels of a single fragment of gastric antral type mucosa. There is no significant inflammation, edema, or vascular congestion. There is no intestinal metaplasia by PAS staining. There are no dysplastic or neoplastic features. Also, no H. pylori organisms are highlighted by immunohistochemistry. GROSS DESCRIPTION A. DUODENUM, BIOPSY GROSS DESCRIPTION: Received in a container of formalin labeled with the patient's name, number, and "duodenum BX" is a 0.5 x 0.2 x 0.1 cm piece of randolph tissue. The specimen is entirely submitted as A1. The time at which the specimen was removed was 939. The time at which the specimen was placed in formalin was 09. B. GASTRIC ANTRUM, BIOPSY GROSS DESCRIPTION: Received in a container of formalin labeled with the patient's name, number, and "antrum BX" is a 0.5 x 0.2 x 0.1 cm piece of randolph tissue. The specimen is entirely submitted as B1. The time at which the specimen was removed was 940. The time at which the specimen was placed in formalin was 09. Electronically signed by: Jaylen Cabrales M.D. [id number]
== END 2025-09-04 17:39 | disposition home health service (06) | DRG 241 ==
LOC: ER 17:32 → ED HOLD 08-31 13:41 → PCU 3S 09-01 07:00 → SUR 3N 09-04 05:08
PROVIDERS: ADMIT Family Medicine; ATTEND Family Medicine
PROC: 0DB68ZX Excision of Stomach, Via Natural or Artificial Opening Endoscopic, Diagnostic (ICD-10-PCS; 2025-09-03)
PROC: 0DB78ZX Excision of Stomach, Pylorus, Via Natural or Artificial Opening Endoscopic, Diagnostic (ICD-10-PCS; 2025-09-03)
PROC: 0DB98ZX Excision of Duodenum, Via Natural or Artificial Opening Endoscopic, Diagnostic (ICD-10-PCS; principal; 2025-09-03 09:30)
DX: K25.4 Chronic or unspecified gastric ulcer with hemorrhage (principal); G93.41 Metabolic encephalopathy; E72.20 Disorder of urea cycle metabolism, unspecified; K21.01 Gastro-esophageal reflux disease with esophagitis, with bleeding; E88.09 Other disorders of plasma-protein metabolism, not elsewhere classified; E87.0 Hyperosmolality and hypernatremia; Z20.822 Contact with and (suspected) exposure to COVID-19; E83.51 Hypocalcemia; E11.22 Type 2 diabetes mellitus with diabetic chronic kidney disease; N17.9 Acute kidney failure, unspecified; E03.9 Hypothyroidism, unspecified; E86.0 Dehydration; F31.9 Bipolar disorder, unspecified; K29.81 Duodenitis with bleeding; E11.65 Type 2 diabetes mellitus with hyperglycemia; F41.9 Anxiety disorder, unspecified; D50.0 Iron deficiency anemia secondary to blood loss (chronic); K31.89 Other diseases of stomach and duodenum; E86.1 Hypovolemia; N18.32 Chronic kidney disease, stage 3b; I12.9 Hypertensive chronic kidney disease with stage 1 through stage 4 chronic kidney disease, or unspecified chronic kidney disease; G40.909 Epilepsy, unspecified, not intractable, without status epilepticus; Z88.2 Allergy status to sulfonamides; Z79.899 Other long term (current) drug therapy; Z87.891 Personal history of nicotine dependence
CPT/HCPCS: 36415; 43239; 70450; 70551; 71250; 73130; 74176; 80053; 80305; 80320; 81001; 81025; 82140; 82272; 82550; 82948; 83605; 83690; 83735; 83880; 84100; 84132; 84443; 84484; 85008; 85025; 85027; 85610; 85730; 86885; 86900; 86901; 87040; 87081; 87324; 87449; 87811; 93005; 97110; 97116; 97161; 97530; 97535; 99152; 99285; A4353; A4620; A6213; A6250; C1758; G0378; J1815; J2250; J2270; J2470; J3010; J3480; J7030; J7040; J7042; J7070; J7120; Q0177

== ENCOUNTER 2025-09-21 15:18 | Emergency (ER) | payer MEDICAID ==
[~2025-09-21] VITALS: Ht 160 cm; Wt 63.7 kg
[~2025-09-21 15:18] MED LIST changes: -BUPR2TAB11 SL; -FURO20TA4 PO; +LEVE250T PO; +PANT40TA54 PO; -QUET-1 PO; -QUET50TA PO; -VALA500T41 PO
[2025-09-21 15:26] VITALS: TEMP 97
--- NOTE | 2025-09-21 15:41 | ELECTROCARDIOGRAPH REPORT ---
[facility] Test Date: 2025-09-21 Test Time: 15:39:36 Pat Name: ELEANOR LESLIE Department: [facility] Patient ID: [id number] Room: Gender: F Environmental Services Technician: : 1970 Requested By: TEDDY MATHIAS Order Number: [id number] Reading MD: Dr. Avery Delacruz Measurements Intervals [place] Rate: 96 P: 51 NH: 125 QRS: -13 QRSD: 97 T: 96 QT: 354 QTc: 448 Interpretive Statements Sinus rhythm Ventricular premature complex Aberrant conduction of SV complex(es) Low voltage, precordial leads Borderline T abnormalities, anterior leads Electronically Signed On 09-23-2025 20:43:[address] Avery Delacruz Please click the below link to view image of tracing.
[2025-09-21 15:56] LABS: MEAN PLATELET VOLUME 7.8 FL (7.4-10.4); RED CELL DISTRIBUTION WIDTH 16.3 % (11.5-14.5)
--- NOTE | 2025-09-21 15:58 | RADIOLOGY REPORT ---
CHEST RADIOGRAPH Indication: CP Technique: Single frontal view of the chest was obtained Comparison: DI CHEST,SINGLE VIEW on DOS: 08/25/25, DI CHEST,SINGLE VIEW on DOS: 05/26/24, CHEST,SINGLE VIEW on DOS: 02/08/23 FINDINGS: Lines and Tubes: None Lungs: No focal consolidation. Pleura: No effusion. No pneumothorax. Cardiomediastinal contours: Unremarkable Bones: No acute osseous abnormality. IMPRESSION: No acute cardiopulmonary disease.
[2025-09-21 16:13] LABS: CREATININE 1.50 MG/DL (0.40-0.90); PRO BRAIN NATRIURETIC PEPTIDE 1601 PG/ML (0-125); TOTAL CARBON DIOXIDE 28.2 MMOL/L (24-32); eCRCL 35 ML/MIN; eGFR 36 ML/MIN
[2025-09-21 16:25] LABS: EOSINOPHILS % (MANUAL) 1.0 % (0-6); LYMPHOCYTES % (MANUAL) 25.0 % (21-51); MONOCYTES % (MANUAL) 5.0 % (2-12); MYELOCYTES % (MANUAL) 1.0 % (0-0); NEUTROPHILS % (MANUAL) 68.0 % (42-75); PLATELET ESTIMATE NORMAL
[2025-09-21] MEDS: furosemide 10 MG/1 ML 10ml inj IV ONE (16:57)
[2025-09-21] MEDS: potassium Cl 20 mEq SR tablet PO STA (16:57)
--- NOTE | 2025-09-21 17:05 | Physician Documentation ---
History of Present Illness ~ Chief Complaint: Extremity Swelling Stated Complaint: LEG SWELLING Time Seen by MD: 15:30 Primary Medical Doctor: JACK Source: patient Mode of Arrival: POV, Ambulatory Exam Limitations: no limitations HPI 55-year-old female who is here due to worsening of her lower extremity edema w hich has been gradual in onset over the past week since she has been discharged from the hospital. She has a hospital bed that she sleeps in she does not sleep in a recliner she states her legs have been elevated. She denies any worsening of her chronic shortness of breath. She has been taking her Lasix as prescribed. She is told that she is supposed to be wearing compression s tockings but states she has not been wearing them because the one she has only go to her knees and she states I know I need to get the ones that go to my thighs. She states the redness discoloration on her left lower leg is chronic. She states that the pain in her legs is due to the swelling in his her thighs knees and calves. She usually gets this pain when her legs get the swollen. She states she has a follow up with her primary care provider in two days. Tetanus witin 5 years: Yes Medication Reconciliation Allergies: Coded Allergies: Sulfa (Sulfonamide Antibiotics) (Verified Allergy, Severe, HIVES + SWELLING, 09/21/25) Scheduled Atorvastatin Calcium (Atorvastatin Calcium), 1 TAB PO HS, (Reported) Diltiazem HCl (Diltiazem 24Hr ER), 1 CAP PO DAILY, (Reported) Gabapentin (Gabapentin), 1 TAB PO TID, (Reported) Levetiracetam (Levetiracetam), 500 MG PO BID Metformin Hcl (Metformin Hcl), 1 TAB PO Q12H, (Reported) Metoprolol Tartrate (Metoprolol Tartrate), 1 TAB PO BID, (Reported) Pantoprazole Sodium (Pantoprazole Sodium), 1 TAB PO DAILY Scheduled PRN Clonidine HCl (Clonidine HCl), 1 TAB PO TID PRN for for anxiety/agitation, (Reported) Past Medical History Past Medical History: Seizures, Hypertension, Cholelithiasis, Diabetes, Thyroid (unspecified) Past Surgical History: other Patient History: FH: heart disease MOTHER Review of Systems All Other Systems at this time: Reviewed and Negative Physical Exam Vital Signs: Temperature: 97.0, Source: Temporal, Heart Rate: 97, Respiratory Rate: 16, BP: 99/63, Pulse Oximetry: 98, Weight: 63.700 Oxygen Flow Rate: 0 Physical Exam GENERAL: Alert, no acute distress. HEENT: NCAT, EOMI, PERRL, normal oropharynx, moist oral mucosa. NECK: Supple, trachea midline. CARDIAC: Regular rate and rhythm, systolic murmur 3/6 over aortic valve 2rics, rubs, or gallops. PV: Bilateral lower extremity edema 2+ pitting no weeping, left lower leg anter ior tibia is pink in color when compared to the right which patient reports is chronic, left 3rd toe violaceous in color patient states that this is chronic times ears, cap refill less than 2 seconds at toes, pedal pulses 2+ bilaterally RESPIRATORY: Equal breath sounds, clear to auscultation bilaterally, no respiratory distress. MUSCULOSKELETAL: Normal range of motion, nontender, no swelling. Normal gait. NEUROLOGICAL: Awake, alert, and oriented x 3. SKIN: Warm/dry, no pallor, no rash. PSYCH: Alert and appropriate. Affect congruent with mood. Speech is clear. Good eye contact. Progress Results/Orders Results/Orders Completed Orders - SAHRA TAMAYO Furosemide Inj (Lasix Inj) (09/21/25 16:30) Potassium Cl Sr Tablet (K-Dur Tablet) (09/21/25 16:27) Vital Signs 09/21/25 09/21/25 09/21/25 09/21/25 15:26 16:22 16:22 16:54 Temp 97.0 Pulse 100 90 97 Resp 18 16 16 B/P (MAP) 121/71 109/64 (79) 99/63 (75) Pulse Ox 99 98 98 O2 Flow Rate 0 0 0 Laboratory Tests Test 09/21/25 15:42 White Blood Count 6.7 Red Blood Count 2.40 L Hemoglobin 10.0 L Hematocrit 30.2 L Mean Corpuscular Volume 126.2 H Mean Corpuscular Hemoglobin 41.8 H Mean Corpuscular Hemoglobin Concent 33.1 Red Cell Distribution Width 16.3 H Platelet Count 332 Mean Platelet Volume 7.8 Neutrophils (%) (Auto) 66.4 Lymphocytes (%) (Auto) 27.2 Monocytes (%) (Auto) 4.3 Eosinophils (%) (Auto) 1.6 Basophils (%) (Auto) 0.5 Neutrophils # (Auto) 4.4 Lymphocytes # (Auto) 1.8 Monocytes # (Auto) 0.3 Eosinophils # (Auto) 0.1 Basophils # (Auto) 0.0 CBC Comment Differential Total Cells Counted 100 Neutrophils % (Manual) 68.0 Lymphocytes % (Manual) 25.0 Monocytes % (Manual) 5.0 Eosinophils % (Manual) 1.0 Myelocytes % 1.0 H Hypersegmented Neutrophils 2+ Platelet Estimate Normal Red Blood Cell Morphology Perf Polychromasia 1+ Hypochromasia 1+ Basophilic Stippling Anisocytosis 1+ Macrocytosis 3+ Stomatocytes 1+ Sodium Level 142 Potassium Level 3.8 Chloride Level 105 Carbon Dioxide Level 28.2 Anion Gap 9 Blood Urea Nitrogen 15 Creatinine 1.50 H Estimated GFR/1.73 m2 36 BUN/Creatinine Ratio 10.0 Glucose Level 78 Calcium Level 7.6 L Troponin I High Sensitivity 9 Pro-B-Type Natriuretic Peptide 1601 H Albumin 2.0 L Chemistry Comments Medical Decision Making Additional information obtaine: N/A Findings n/a General Diff Dx:Considerations: Include: Abrasion, Contusion, Fracture, Hematoma, Laceration, Malunion, Neurovascular injury, Open fracture, Sprain, Ulcer, Other Knee Diff Dx:Considerations: Unlikely: Other Ankle Diff Dx:Considerations: Unlikely: Other Foot Diff Dx:Considerations: Unlikely: Other Toe Diff Dx:Considerations: Unlikely: Other Additional Comment Patient BNP is elevated however GFR is in the 30s this may be contributing to some of the elevated BNP. She has not have any pleural effusions on her chest x-ray and her troponin is not elevated thus no evidence for heart strain. I reviewed her echocardiogram last month which showed an ejection fraction of 55- 60%. Patient's only complaint is the swelling and pain in her legs, she has no complaints of SOB or chest pain. Her swelling may be due to aortic valve issue but this would be outpatient workup. Her swelling could also be from lymphedema. I decided against treating her with IV lasix here due to hypotension and the fact that she was not reporting shortness of breath, and no fluid on lungs on cxr. Departure Time of Disposition: 17:07 Disposition: 01 HOME / SELF CARE / HOMELESS Impression: Primary Impression: Edema of lower extremity Condition: Stable Discharge Instructions: Edema, [id number] Additional Instructions: You need a referral to a clinical services manager due to findings on the echocardiogram with your aortic valve noting that it was moderately in sufficient. This needs to be followed by a clinical services manager. You do not have any fluid on your lungs on your chest x-ray, you are not hypoxic vital signs are stable I feel it is reasonable to discharge you to focus on wrapping your legs are getting compression stockings and follow up with your primary care provider for a referral for home health possibly physical therapy through home health agency as well as nursing to wrap your legs. Referrals: NO PRIMARY CARE PROVIDER (PCP) Education Educated: Patient Educated regarding: diagnosis, treatment, need for follow up Signature Scribe Signature: x Attestation: SAHRA Gilliland Sep 21, 2025 17:05
[2025-09-21 17:17] VITALS: BP 99/63; PULSE 101; RESP 16; O2SAT 98
== END 2025-09-21 17:28 | disposition home or self-care (01) ==
LOC: ER 15:19
DX: R60.0 Localized edema (principal); R06.02 Shortness of breath; E11.9 Type 2 diabetes mellitus without complications; I10 Essential (primary) hypertension; Z88.2 Allergy status to sulfonamides; Z88.8 Allergy status to other drugs, medicaments and biological substances
CPT/HCPCS: 36415; 71045; 80048; 83880; 84484; 85007; 85025; 93005; 99285